=== PATIENT | female | born 1970 | race Caucasian/White ===

== ENCOUNTER 2023-04-25 20:44 | Emergency (ER) | payer MEDICARE, SELFPAY ==
[2023-04-25] VITALS (19 sets, daily range): BP systolic 142–165; BP diastolic 72–101; PULSE 64–73; RESP 18; TEMP 36.5; O2SAT 91–100; BMI 39.9
--- NOTE | 2023-04-25 21:26 | CRLHL7_ITS ---
For Patients: As a result of the Century Cures Act, medical imaging exams and procedure reports are released immediately into your electronic medical record. You may view this report before your referring provider. If you have questions, please contact your health care provider. INDICATION: Chest pain TECHNIQUE: Chest 2 views. COMPARISON: None FINDINGS: Cardiovascular and mediastinum: Heart size and vasculature are normal in caliber and appearance. Mediastinum is within normal limits. Lungs and pleural spaces: On the frontal projection there is ovoid density measuring 2.0 x 1.5 overlying posterior aspect left 8th rib. This is seen lateral view. No sign of infiltrate or mass. No sign of pleural effusion. No pneumothorax. Bones and soft tissues: No significant findings. IMPRESSION: Ovoid density overlying the left 8th rib, seen only on the frontal projection. This is of unknown etiology. Consider chest CT for further evaluation if clinically indicated. Dictated by Andria Laird MD @ 04/25/2023 10:56:44 PM (Electronically Signed)
[2023-04-25 21:44] LABS: Basophils Absolute Auto 0.04 K/uL (0.00-0.30); Basophils Percent Auto 0.5 % (0.0-3.0); Eosinophils Absolute Auto 0.17 K/uL (0.00-0.50); Eosinophils Percent Auto 2.1 % (0.0-7.0); Hematocrit 38.7 % (33.0-51.0); Hemoglobin* 12.1 gm/dL (12.0-16.0); Immature Granulocytes Abs Auto 0.01 K/uL (0.00-0.30); Immature Granulocytes Pct Auto 0.1 %; Lymphocytes Absolute Auto 2.86 K/uL (0.90-2.90); Lymphocytes Percent Auto 35.6 % (20-44); Mean Corpuscular HGB Conc 31 gm/dL (32-36); Mean Corpuscular Hemoglobin 28 pg (26-34); Mean Corpuscular Volume 90 fL (80-100); Monocytes Percent Auto 7.7 % (0.0-11.0); Neutrophils Absolute Auto 4.34 K/uL (1.7-7.0); Platelet Count* 286 K/uL (140-440); RDW Coefficient of Variation % 15.7 % (11.5-15.5); Red Blood Count 4.28 m/uL (4.00-5.20); White Blood Count* 8.04 K/uL (4.50-11.00)
[2023-04-25 21:45] LABS: Slide Review Reflex No
--- NOTE | 2023-04-25 21:48 | ED_ITS ---
HPI - General Adult General Date Seen: 04/25/23 Chief complaint: Chest Pain Stated complaint: Chest pain Time Seen by Provider: 04/25/23 20:59 Source: patient Mode of arrival: ambulatory Limitations: no limitations History of Present Illness HPI narrative: Patient is a 53-year-old female who comes in with left-sided chest pain that radiates into her left axilla. She describes this as a sharp pain but she also describes it as an internal pain that she can not put her finger on. She has history of anxiety and acid reflux and in the past when she has had chest pain she was told that it was one of those. She has never had a stress test. Her risk factors include family history, hyperlipidemia, type 2 diabetes. She was doing some heavy physical work on the roof two days ago and had no pain while doing these chores. Today the pain came on while she was just sitting. There is no diaphoresis, dyspnea, nausea. She does not have much of an appetite due to her Ozempic. Related Data Home Medications Medication Instructions Recorded Confirmed adalimumab 40 mg/0.8 mL 40 mg subcut Q2W 04/25/23 04/25/23 subcutaneous syringe kit (Humira) cholecalciferol (vitamin D3) 50 50 mcg PO DAILY 04/25/23 04/25/23 mcg (2,000 unit) capsule docusate sodium 100 mg capsule 100 mg PO DAILY 04/25/23 04/25/23 folic acid 1 mg tablet 1 mg PO DAILY 04/25/23 04/25/23 hydroxychloroquine 200 mg tablet 200 mg PO DAILY 04/25/23 04/25/23 (Plaquenil) insulin NPH-regular 70-30 U-100 See Rx Instructions subcut BID 04/25/23 04/25/23 insulin 100 unit/mL subcutaneous pen methotrexate (PF) 25 mg/0.5 mL 25 mg subcut QWEEK 04/25/23 04/25/23 subcutaneous auto-injector prednisone 2.5 mg tablet 2.5 mg PO DAILY 04/25/23 04/25/23 semaglutide 2 mg/dose (8 mg/3 mL) 0.5 mg subcut QWEEK 04/25/23 04/25/23 subcutaneous pen injector simvastatin 10 mg tablet 10 mg PO DAILY 04/25/23 04/25/23 venlafaxine 150 mg tablet,extended 150 mg PO DAILY 04/25/23 04/25/23 release 24 hr Allergies Allergy/AdvReac Type Severity Reaction Status Date / Time codeine Allergy Mild Nausea Verified 04/25/23 21:13 sulfasalazine Allergy Rash Verified 04/25/23 21:13 pineapple AdvReac Vomiting Verified 04/25/23 21:13 topiramate [From Topamax] AdvReac Verified 04/25/23 21:13 Review of Systems Narrative: She has chronic widespread pain and is treated for rheumatoid arthritis. She does not describe morning stiffness. She denies any medication side effects. Her PCP is Pelon. She has a hide buffer in [place]. Review of systems is otherwise unremarkable. [facility] Social History Smoking Status: Unknown if ever smoked Exam Narrative: Exam Narrative: Vitals noted. HEENT: Conjunctiva clear. Tympanic membranes are pearly white bilaterally. Po sterior pharynx is clear without erythema or exudate. She is missing most of her teeth. Neck is supple without adenopathy, thyromegaly, carotid bruit. Lungs: Clear to auscultation in all krishna. No wheezes, rales, rhonchi. Heart: Regular rate and rhythm without murmur. No significant chest wall tenderness. There may be some discomfort with deep palpation in the left axilla. No palpable mass. Abdomen: Obese, Soft and nontender. No guarding, rigidity, rebound. Bowel sounds are normal. No palpable masses. Extremities: No cyanosis or edema. Good distal pulses. Skin: No abnormalities noted of the exposed skin. Neurologic: Awake, alert, fully oriented. Neurologic exam is nonfocal. Const: Vital Signs, click to edit/add: Vital Signs - 24 hr 04/25/23 20:48 04/25/23 21:21 04/25/23 21:30 Temperature 97.7 F Pulse Rate 70 69 Pulse Rate [Pulse Oximeter] 70 Respiratory Rate 18 Blood Pressure Blood Pressure [Ri ght Upper Arm] 165/85 H Pulse Oximetry 100 100 99 Oxygen Delivery Me thod Room Air 04/25/23 21:33 04/25/23 21:34 04/25/23 21:35 Temperature Pulse Rate 73 Pulse Rate [Pulse Oximeter] Respiratory Rate Blood Pressure 142/101 H Blood Pressure [Ri ght Upper Arm] Pulse Oximetry 100 91 Oxygen Delivery Me thod 04/25/23 21:45 04/25/23 22:06 04/25/23 22:15 Temperature Pulse Rate 68 66 64 Pulse Rate [Pulse Oximeter] Respiratory Rate Blood Pressure Blood Pressure [Ri ght Upper Arm] Pulse Oximetry 100 97 99 Oxygen Delivery Me thod 04/25/23 22:30 04/25/23 22:33 04/25/23 22:48 Temperature Pulse Rate 65 66 70 Pulse Rate [Pulse Oximeter] Respiratory Rate Blood Pressure 149/84 H Blood Pressure [Ri ght Upper Arm] Pulse Oximetry 100 100 100 Oxygen Delivery Me thod 04/25/23 23:00 04/25/23 23:02 04/25/23 23:15 Temperature Pulse Rate 65 66 64 Pulse Rate [Pulse Oximeter] Respiratory Rate Blood Pressure 156/72 H Blood Pressure [Ri ght Upper Arm] Pulse Oximetry 100 100 100 Oxygen Delivery Me thod 04/25/23 23:30 04/25/23 23:33 04/25/23 23:34 Temperature Pulse Rate 66 66 66 Pulse Rate [Pulse Oximeter] Respiratory Rate Blood Pressure 155/73 H Blood Pressure [Ri ght Upper Arm] Pulse Oximetry 100 94 99 Oxygen Delivery Me thod 04/25/23 23:45 Temperature Pulse Rate 67 Pulse Rate [Pulse Oximeter] Respiratory Rate Blood Pressure Blood Pressure [Ri ght Upper Arm] Pulse Oximetry 100 Oxygen Delivery Me thod Course Course Hospital Course: Patient seen and examined. Chest x-ray, EKG and labs are ordered. Reevaluation(s) Reevaluation #1: CBC is normal. Basic metabolic panel is normal other than a potassium of 3.4. Troponin is negative. D-dimer is 0.71. EKG shows normal sinus rhythm with a rate of 68. No acute ST or T-wave changes. Chest x-ray is unremarkable other than a density noted over her left 8th rib. This does not show up on the lateral view. CT is suggested. Reevaluation #2: CT of her chest is unremarkable. Second troponin is negative. Vital Signs Vital signs: Initial Vital Signs Temperature 97.7 F 04/25/23 20:48 Temperature Source Temporal Artery Scan 04/25/23 20:48 Pulse Rate 70 04/25/23 20:48 Pulse Rhythm Regular 04/25/23 20:48 Pulse Strength 3+ Normal 04/25/23 20:48 Respiratory Rate 18 04/25/23 20:48 Respiratory Effort Normal, Spontaneous, Non-Labored 04/25/23 20:48 Respiratory Depth Normal 04/25/23 20:48 Respiratory Pattern Normal 04/25/23 20:48 Blood Pressure 165/85 H 04/25/23 20:48 Blood Pressure Mean 111 H 04/25/23 20:48 Blood Pressure Position Sitting 04/25/23 20:48 Pulse Oximetry 100 04/25/23 20:48 Oxygen Delivery Method Room Air 04/25/23 20:48 Vital Signs Temperature 97.7 F 04/25/23 20:48 Pulse Rate 70 04/25/23 20:48 Respiratory Rate 18 04/25/23 20:48 Blood Pressure 165/85 H 04/25/23 20:48 Pulse Oximetry 100 04/25/23 20:48 Oxygen Delivery Method Room Air 04/25/23 20:48 Temperature 97.7 F 04/25/23 20:48 Pulse Rate 67 04/25/23 23:45 Respiratory Rate 18 04/25/23 20:48 Blood Pressure 155/73 H 04/25/23 23:33 Pulse Oximetry 100 04/25/23 23:45 Oxygen Delivery Method Room Air 04/25/23 20:48 Medical Decision Making MDM Narrative Medical decision making narrative: We discussed the chest pain can be chest wall pain, anxiety, acid reflux, etc.. We have ruled out cardiac sources. We have ruled out pulmonary embolism. She is reassured. She tells me that she has had several stress tests in the past all of which were normal. Lab Data Labs: Lab Results 04/25/23 04/25/23 04/25/23 Range/Units 21:10 21:20 23:40 WBC 8.04 (4.50-11.00) K/uL RBC 4.28 (4.00-5.20) m/uL Hgb 12.1 (12.0-16.0) gm/dL Hct 38.7 (33.0-51.0) % MCV 90 (80-100) fL MCH 28 (26-34) pg MCHC 31 L (32-36) gm/dL RDW Coeff of [place] 15.7 H (11.5-15.5) % Plt Count 286 (140-440) K/uL Neut % (Auto) 54.0 (42.0-72.0) % Lymph % (Auto) 35.6 (20-44) % [place] % (Auto) 7.7 (0.0-11.0) % Eos % (Auto) 2.1 (0.0-7.0) % Baso % (Auto) 0.5 (0.0-3.0) % Neut # (Auto) 4.34 (1.7-7.0) K/uL Lymph # (Auto) 2.86 (0.90-2.90) K/uL [place] # (Auto) 0.60 (0.00-0.90) K/UL Eos # (Auto) 0.17 (0.00-0.50) K/uL Baso # (Auto) 0.04 (0.00-0.30) K/uL Abs Immat Gran (auto) 0.01 (0.00-0.30) K/uL Imm/Tot Granulo (auto) 0.1 % D-Dimer Quant (PE/DVT) 0.71 H (0.00-0.50) ug/ml Sodium 140 (135-149) mmol/L Potassium 3.4 L (3.6-5.1) mmol/L Chloride 103 (96-114) mmol/L Carbon Dioxide 32 (20-32) mmol/L BUN 9 (7-30) mg/dL Creatinine 0.7 (0.5-1.5) mg/dL Estimated Creat Clear 83.63 Estimated GFR 103 ml/min Glucose 86 (60-115) mg/dL Calcium 9.3 (8.4-10.6) mg/dL Troponin I < 0.01 L (0.01-0.04) ng/mL POC Troponin I 0.00 L 0.00 L (0.01-0.04) ng/ml Discharge Plan Discharge Clinical Impression: Atypical chest pain Patient Disposition: Home, Self-Care Condition: Stable Additional Instructions: Continue all of your current medications. Ibuprofen 600 mg 3 times daily as needed for pain. Tylenol 1000 mg 3 times daily as needed for pain. Follow-up w antolin Bird in 3-5 days for a recheck. Prescriptions: No Action Humira 40 mg/0.8 mL syringe kit 40 mg subcut Q2W cholecalciferol (vitamin D3) 50 mcg (2,000 unit) capsule 50 mcg PO DAILY docusate sodium 100 mg capsule 100 mg PO DAILY folic acid 1 mg tablet 1 mg PO DAILY hydroxychloroquine [Plaquenil] 200 mg tablet 200 mg PO DAILY methotrexate (PF) 25 mg/0.5 mL auto-injector 25 mg subcut QWEEK insulin NPH and regular human 100 unit/mL (70-30) insulin pen See Rx Instructions subcut BID Rx Instructions: subcutaneously twice a day; prednisone 2.5 mg tablet 2.5 mg PO DAILY semaglutide 2 mg/dose (8 mg/3 mL) pen injector 0.5 mg subcut QWEEK simvastatin 10 mg tablet 10 mg PO DAILY venlafaxine 150 mg tablet extended release 24hr 150 mg PO DAILY Follow Up/Referrals: Radha Bird DO [Primary Care Provider] - Stand Alone Forms: [facility] Info Instructions
[2023-04-25 21:50] LABS: Chloride* 103 mmol/L (96-114); Sodium* 140 mmol/L (135-149)
[2023-04-25 21:51] LABS: Potassium* 3.4 mmol/L (3.6-5.1)
[2023-04-25 21:53] LABS: Carbon Dioxide* 32 mmol/L (20-32); Creatinine* 0.7 mg/dL (0.5-1.5); Est. Creatinine Clearance* 83.63; Estimated Glomerular Filt Rate 103 ml/min
[2023-04-25 21:54] LABS: Blood Urea Nitrogen* 9 mg/dL (7-30); Calcium* 9.3 mg/dL (8.4-10.6); Glucose* 86 mg/dL (60-115)
[2023-04-25 21:56] LABS: D Dimer Quantitative* 0.71 ug/ml (0.00-0.50)
--- NOTE | 2023-04-25 22:02 | CRLHL7_ITS ---
For Patients: As a result of the Century Cures Act, medical imaging exams and procedure reports are released immediately into your electronic medical record. You may view this report before your referring provider. If you have questions, please contact your health care provider. INDICATION: .ELEVATED D- DIMER TECHNIQUE: CT chest PE was acquired with 95 cc Isovue 370 IV contrast. COMPARISON: None FINDINGS: Pulmonary Arteries: No CT evidence of pulmonary thromboembolic disease. No pulmonary hypertension or right ventricular strain. Heart and Mediastinum: Punctate calcified thyroid nodules. No axillary or supraclavicular lymphadenopathy. No mediastinal, hilar or retrocrural lymphadenopathy. Normal heart size. Normal caliber aorta. Lungs and Airways: Motion. No mass or consolidation. Calcified left lower lobe granuloma. No endoluminal lesion. Pleura: The pleural spaces are normal. Abdomen: The visualized upper abdominal organs are unremarkable. Bones and soft tissues: The skeletal structures and soft tissues of the chest wall are unremarkable. IMPRESSION: 1. No CT evidence of pulmonary thromboembolic disease. 2. No intrathoracic mass or consolidation. Please note that all CT scans at this facility use dose modulation, iterative reconstruction, and/or weight-based dosing when appropriate to reduce radiation dose to as low as reasonably achievable. Dictated by Byron Wisdom MD @ 04/25/2023 11:28:04 PM (Electronically Signed)
[2023-04-25 22:16] LABS: Troponin I* < 0.01 ng/mL (0.01-0.04)
== END 2023-04-25 23:59 | disposition home or self-care (01) ==
PROVIDERS: Emergency Provider Family Medicine; PCP Family Medicine
DX: R07.9 Chest pain, unspecified (principal)
CPT/HCPCS: 36415; 71046; 71260; 80048; 84484; 85025; 85379; 93005; 94761; 99283; 99284; 99285; Q9967

== ENCOUNTER 2024-08-26 08:03 | Outpatient (CLI) | payer MEDICARE, SELFPAY | END 2024-08-26 08:04 | disposition home or self-care (01) | LOC: WOUND 08:04 | PROVIDERS: PCP Family Medicine; Visit Provider Family Medicine | DX: E11.621 Type 2 diabetes mellitus with foot ulcer (principal); E11.42 Type 2 diabetes mellitus with diabetic polyneuropathy; L97.528 Non-pressure chronic ulcer of other part of left foot with other specified severity; M06.9 Rheumatoid arthritis, unspecified; Z79.4 Long term (current) use of insulin; Z79.899 Other long term (current) drug therapy | CPT/HCPCS: 11042; G0463 ==

== ENCOUNTER 2024-09-02 10:45 | Outpatient (CLI) | payer MEDICARE, SELFPAY | END 2024-09-02 10:46 | disposition home or self-care (01) | LOC: WOUND 10:45 | PROVIDERS: PCP Family Medicine; Visit Provider Nurse Practitioner Family | DX: E11.621 Type 2 diabetes mellitus with foot ulcer (principal); E11.42 Type 2 diabetes mellitus with diabetic polyneuropathy; L97.522 Non-pressure chronic ulcer of other part of left foot with fat layer exposed; Z79.4 Long term (current) use of insulin | CPT/HCPCS: 11042 ==

== ENCOUNTER 2024-09-09 11:17 | Outpatient (CLI) | payer MEDICARE, SELFPAY | END 2024-09-09 11:18 | disposition home or self-care (01) | LOC: WOUND 11:17 | PROVIDERS: PCP Family Medicine; Visit Provider Nurse Practitioner Family | DX: E11.621 Type 2 diabetes mellitus with foot ulcer (principal); E11.42 Type 2 diabetes mellitus with diabetic polyneuropathy; L97.522 Non-pressure chronic ulcer of other part of left foot with fat layer exposed; Z79.4 Long term (current) use of insulin | CPT/HCPCS: 97597 ==

== ENCOUNTER 2024-09-23 11:16 | Outpatient (CLI) | payer MEDICARE, SELFPAY | END 2024-09-23 11:17 | disposition home or self-care (01) | LOC: WOUND 11:16 | PROVIDERS: PCP Family Medicine; Visit Provider Nurse Practitioner Family | DX: E11.621 Type 2 diabetes mellitus with foot ulcer (principal); E11.42 Type 2 diabetes mellitus with diabetic polyneuropathy; L97.528 Non-pressure chronic ulcer of other part of left foot with other specified severity; Z79.4 Long term (current) use of insulin | CPT/HCPCS: 97602; G0463 ==

== ENCOUNTER 2024-10-07 11:08 | Outpatient (CLI) | payer MEDICARE, SELFPAY | END 2024-10-07 11:09 | disposition home or self-care (01) | LOC: WOUND 11:08 | PROVIDERS: PCP Family Medicine; Visit Provider Family Medicine | DX: E11.621 Type 2 diabetes mellitus with foot ulcer (principal); E11.42 Type 2 diabetes mellitus with diabetic polyneuropathy; L97.522 Non-pressure chronic ulcer of other part of left foot with fat layer exposed; Z79.4 Long term (current) use of insulin | CPT/HCPCS: 11042 ==

== ENCOUNTER 2024-10-20 14:02 | Outpatient (CLI) | payer MEDICARE, SELFPAY | END 2024-10-20 14:03 | disposition home or self-care (01) | LOC: AMB 10-31 03:36 | PROVIDERS: PCP Family Medicine; Visit Provider Emergency Medicine | DX: R11.2 Nausea with vomiting, unspecified (principal) | CPT/HCPCS: A0425; A0427 ==

== ENCOUNTER 2024-10-20 14:16 | Emergency (ER) | payer MEDICARE, SELFPAY ==
[2024-10-20 14:19] VITALS: BP 119/48; PULSE 109; RESP 18; TEMP 38.1; O2SAT 96; BMI 39.1
--- OUTSIDE RECORDS SUMMARY | 2024-10-20 14:19 | XMS_ITS | Clinical Summary ---
Author Organization [employer] Formerly [facility] Address [place], [place] [address] Care Team Providers Care Manager Ob Name Role Phone Gordon Aime Paez Unavailable Unavailab Chele Trevino MD Unavailable [phone] Celia Dos Santos PsyD, LP Unavailable Ivana Chowdhury MD Primary Care Prov ider Allergies Active Allergy Reactions Criticality Noted Date Comments Codeine Nausea And Vomiting,Nausea Only,Other - Describe In Comment Field Low 02/20/2007 Pineapple Vomiting 05/04/2007 all canned fruit and juice from concentrate Sulfa (Sulfonamide Antibiotics) Other - Describe In Comment Field 08/21/2024 Sulfasalazine Rash 09/02/2013 Topiramate Other - Describe In Comment Field 05/31/2017 brain foggy Medications cholecalciferol (VITAMIN D-3) 2,000 unit capsule Take 2 capsules by mouth once daily. 0 11/18/19 14 Active docusate (DOC-Q-LACE) 100 mg capsuleIndicatio ns:Chronic constipation Take 1 capsule by mouth 2 times daily. 180 capsule 3 03/06/20 17 Active adalimumab (HUMIRA PEN) 40 mg/0.4 mL pnkt Inject subcutaneous. 0 11/07/19 19 Active predniSONE (DELTASONE) 2.5 mg tablet 2.5 tid, half the other 4 days 3 01/29/20 19 Active Insulin [place], Disposable, (Novofine 32) 32 gauge x 1/4Indications: Diabetes mellitus without complication (HC) For administering insulin at home. 300 Each 3 03/07/20 22 Active semaglutide (OZEMPIC) 2 mg/dose (8 mg/3 mL) penIndications:D iabetes mellitus without complication (HC) Inject 0.75 mL (2 mg) subcutaneous once weekly. 3 mL 4 03/10/20 23 Active insulin NPH-regular (NovoLIN 70-30 FlexPen U-100) 100 unit/mL (70-30) penIndications:D iabetes mellitus without complication (HC) 20-25 units before the evening meal. and 30-35 units before the am meal. 30 mL 3 09/11/20 23 Active FreeStyle Bambi [address] for continuous blood glucose monitor (CGM)Indications :Insulin dependent type 2 diabetes mellitus, controlled (HC) To be used to read blood sugars follow senior procurement manager directions. 1 Each 03/18/20 24 Active environmental technical officer (FreeStyle Bambi [address]) for continuous blood glucose monitor (CGM)Indications :Insulin dependent type 2 diabetes mellitus, controlled (HC) To be used to read blood sugars follow senior procurement manager directions. 1 Each 03/18/20 24 Active iron,carb/vit C/vit B12/folic (IRON 100 PLUS ORAL) Take by mouth. Activ e Contour Next Test Strips stripIndications :Diabetes mellitus without complication (HC) USE TO TEST THREE TIMES A DAY 07/01/20 24 Active sensor (FreeStyle Bambi 3 Sensor) for continuous blood glucose monitor (CGM)Indications :Diabetes mellitus without complication (HC),Insulin dependent type 2 diabetes mellitus, controlled (HC) To be used to read blood sugars, follow senior procurement manager directions. 7 Each 3 07/01/20 24 Active venlafaxine (EFFEXOR XR) 150 mg Extended-Release capsuleIndicatio ns:Generalized anxiety disorder,Major depressive disorder, recurrent episode, moderate (HC) TAKE 2 CAPSULES BY MOUTH ONCE DAILY WITH EVENING MEAL 180 Capsule 3 07/10/20 24 Active simvastatin (ZOCOR) 10 mg tabletIndication s:Diabetes mellitus without complication (HC),Hyperlipide leena with target LDL less than 100 TAKE 1 TABLET BY MOUTH ONCE DAILY WITH EVENING MEAL 100 Tablet 2 08/16/20 24 Active cloNIDine HCL (CATAPRES) 0.1 mg tabletIndication s:JACINTO (generalized anxiety disorder),Bruxis m (teeth grinding) Take 1 Tablet (0.1 mg) by mouth two times daily. twice a day 180 Tablet 1 09/25/20 24 Active methotrexate 25 mg/mL injectionIndicat ions:Rheumatoid arthritis, seronegative, multiple sites (HC) Inject 0.9 mL (22.5 mg) subcutaneous once weekly. 16 mL 09/26/20 24 Active folic acid 1 mg tabletIndication s:Rheumatoid arthritis, seronegative, multiple sites (HC) Take 3 Tablets (3 mg) by mouth once daily. 60 Tablet 11 09/26/20 24 Active hydroxychloroqui ne (PLAQUENIL) 200 mg tabletIndication s:Rheumatoid arthritis, seronegative, multiple sites (HC) Take 1 Tablet (200 mg) by mouth two times daily. 180 Tablet 1 09/26/20 24 Active B-D TB Syringe 1cc/27Gx1/2 1 mL 27 x 1/2 syrgIndications: Rheumatoid arthritis, seronegative, multiple sites (HC) Inject subcutaneous. To be used for Methotrexate weekly injections 200 Each 1 09/26/20 24 Active hydroxychloroqui ne (PLAQUENIL) 200 mg tablet Take 200 mg by mouth 2 times daily. 06/17/20 14 024 Discontin ued(Reord er (E-cancel not sent)) methotrexate 25 mg/mL injection inject 0.9 mL by Subcutaneous route every week 0 06/28/20 19 024 Discontin ued(Reord er (E-cancel not sent)) folic acid 1 mg tabletIndication s:Depression with anxiety Take 3 tablets by mouth once daily. 60 tablet 11 05/11/20 20 024 Discontin ued(Reord er (E-cancel not sent)) B-D TB SYRINGE 1CC/27GX1/2 1 mL 27 x 1/2 syrg To be used with injectable methotrexate 11/15/19 21 024 Discontin ued(Reord er (E-cancel not sent)) cloNIDine HCL (CATAPRES) 0.1 mg tabletIndication s:JACINTO (generalized anxiety disorder),Bruxis m (teeth grinding) Take 1 Tablet (0.1 mg) by mouth three times daily. 90 Tablet 08/21/20 24 024 Discontin ued(*Medi cation adjustmen t) Active Problems Problem Noted Date Diagnosed Date Rheumatoid arthritis, seronegative, multiple sit es 09/26/2024 Primary osteoarthritis of both knees 09/26/2024 Diabetic ulcer of toe of lef t foot associated with type 2 diabetes mellitus, limited to breakdown of skin 03/18/2024 Vaginal inclusion cyst 03/10/2023 Trigger ring finger of right hand 03/28/2022 De Quervain's tenosynovitis, left 12/27/2021 Severe episode of recurrent major depressive disorder, without psychotic features 11/01/2021 Type 2 diabetes mellitus wit h hypoglycemia without coma, with long-term current use of insulin 11/01/2021 Assessment & Plan (12/13/2022 9:47 AM 3D DESIGNER): chart update only Trigger thumb, acquired 05/18/2021 Trigger index finger of right hand 05/18/2021 Pelvic mass 05/21/2020 Tardive dyskinesia 03/18/2020 Psychophysiological insomnia 08/06/2019 Generalized anxiety disorder 03/20/2018 Controlled substance agreement signed 10/20/2016 Overview (10/20/2016): Controlled substance agreement for Lorazepam on file and signed 10/20/2016. Designated pharmacy: [facility] [phone] Prescribing physician:Dr. Kylee Stacy MD. Diagnosis: Depression with anxiety. Whitley Davis .................... 10/20/2016 4:21 PM Encounter for long-term (cur rent) use of high-risk medication 01/22/2016 Overview (01/22/2016): Controlled substance agreement for Ritalin on file and signed 01/22/16. Prescribing physician:Kylee Stacy MD. Jesica Christian .................... 01/22/2016 11:38 AM Encounter for long-term (current) use of other m edications 07/01/2015 Overview (07/01/2015): Controlled substance agreement for Shraddha on file and signed 07/01/2015. Designated pharmacy: [facility] [phone] Prescribing physician: Dr. Kylee Stacy MD . Diagnosis: Major Depressive Disorder. Whitley Davis .................... 07/01/2015 2:05 PM Hyperlipidemia LDL goal < 100 06/05/2015 Dysthymic disorder 03/28/2014 Unspecified personality disorder 02/28/2014 Rheumatoid arthritis, adult 02/28/2014 Assessment & Plan (12/13/2022 9:47 AM 3D DESIGNER): chart update only. 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 Del Toro Encounters Date Type Department Care Team Description 10/03/2024 Telephone [facility] [address] [place] [address] Ivana Chowdhury MD Screening (Spine Center) 10/01/2024 Orders Only [facility] [id number] [place] [address] Peace Ruth MD <No scans attached> 09/30/2024 Telephone [facility] [address] [place] [address] Ivana Chowdhury MD Form 09/26/2024 11:55 AM 3D DESIGNER Ancillary Procedure [facility] [address] [address] 09/26/2024 11:00 AM 3D DESIGNER Office Visit [facility] [address] [place] [address] Peace Ruth MD Follow Up 09/25/2024 9:45 AM 3D DESIGNER Office Visit [facility] [address] [place] [address] Consuelo Quevedo MD Medication Management 09/25/2024 Travel 09/19/2024 10:30 AM 3D DESIGNER Telemedicine [facility] [place] [place] [address] [place] [address] Celia Dos Santos PsyD, TAMMIE Individual Therapy; Telehealth 09/05/2024 9:30 AM 3D DESIGNER Telemedicine [facility] [place] [place] [address] [place] [address] Celia Dos Santos PsyD, LP Individual Therapy; Telehealth 08/29/2024 10:30 AM 3D DESIGNER Telemedicine [facility] [place] [place] [address] [place] [address] Celia Dos Santos PsyD, LP Individual Therapy; Telehealth 08/23/2024 10:30 AM 3D DESIGNER Ancillary Procedure [facility] [address] [place] [address] 08/23/2024 Travel 08/21/2024 11:15 AM 3D DESIGNER Office Visit [facility] [address] [place] [address] Consuelo Quevedo MD Mental Health Intake (Establish care, medication consult) 08/21/2024 9:50 AM 3D DESIGNER Office Visit [facility] [address] [place] [address] Ivana Chowdhury MD Wound Check (Diabetic wound check on toe) 08/20/2024 Travel 08/13/2024 2:45 PM CDT Ancillary Procedure [facility] [address] [place] [address] 08/13/2024 2:15 PM CDT Office Visit [facility] [address] [place] [address] Ivana Chowdhury MD Toe Pain/problem (Possible infection in toe. Pulled a callus off her left toe a few days ago. 1 day for foot and calve pain); Immunization/Injec tion 08/13/2024 9:30 AM CDT Telemedicine [facility] [place] [place] [address] [place] [address] [address] Celia Dos Santos PsyD, TAMMIE Individual Therapy; Telehealth 08/13/2024 Refill [facility] [address] [place] [address] Radha Bird DO Refill Request (Simvastatin) 08/13/2024 Travel 07/31/2024 9:30 AM CDT Telemedicine [facility] [place] [place] [address] [place], [place] [address] [address] Celia Dos Santos PsyD, TAMMIE Individual Therapy; Telehealth 07/25/[address] [address] Consuelo Quevedo MD Questions (requesting approval to follow up ) 07/23/2024 3:00 PM CDT Office Visit [facility] [address] [place] [address] Katherin Stallworth MD Consult (gallstones) 07/23/2024 Travel 07/23/2024 Telephone [facility] [place] [place] [address] [place] [address] Celia Dos Santos PsyD, TAMMIE Follow Up (Needs referral ) from Last 3 Months Immunizations Name Administration Dates Next Due COVID-19 VACCINE SPIKEVAX (M ODERNA 50MCG/0.5ML) 12YO+ PFS 08/13/2024,09/11/2023 COVID-19 vaccine (Moderna 100mcg/0.5mL) PF, MDV 08/31/2021,02/11/2021,01/14/2021 COVID-19 vaccine (Pfizer-Bio NTech 30mcg/0.3mL) 12YO+ BIVALENT PF, MDV 07/11/2022 Hepatitis B (Adult) 01/07/2022,11/01/2021 INFLUENZA, IIV3 PF (AGE >= 6 MO) 08/13/2024 Influenza, IIV4 09/11/2023,,11/01/2021,2019,08/09/2019,11/07/2018,08/30/2017 Pneumococcal Conj 20-valent (Prevnar 20) 03/10/2023 Pneumococcal Poly,23-Valent (Pneumovax) 08/30/2017 Td (Age >=7 Years) 04/07/2004 Tdap 03/06/2015 Zoster (Shingrix-RZV, recombinant) 06/25/2023, Family History Medical History Relation Name Comments Diabetes Brother Diabetes Daughter Alcoholism Father Heart Disease Father [place] 60's Hypertension Father Diabetes Maternal Aunt 1 Diabetes Maternal Aunt 2 Diabetes Maternal Grandfather Cancer Maternal Grandmother Diabetes Maternal Uncle 1 Cancer Maternal Uncle 2 Heart Disease Maternal Uncle 2 Cancer Maternal Uncle 3 Cancer Mother cvx Cancer Paternal Aunt breast Cancer-breast Paternal Aunt Cancer Paternal Grandfather Diabetes Paternal Grandmother Alcoholism Sister Drug Abuse Sister Other Sister ?? fallopian tu be cysts as teenager Unknown Sister Psychiatric illness Son mental issues Cancer-ovarian No Family History Relation Name Status Comments Brother Alive Daughter Alive Father Maternal Aunt 1 Alive Maternal Aunt 2 Maternal Grandfather Maternal Grandmother Maternal Uncle 1 Alive Maternal Uncle 2 Maternal Uncle 3 Mother Alive Paternal Aunt Paternal Grandfather Paternal Grandmother Sister Alive Son Alive Social History Tobacco Use Types Packs/Day Years Used Date Smoking Tobacco: Never Smokeless Tobacco: Never Tobacco Cessation:Counseling Given: Yes Alcohol Use Standard Drinks/Week Comments No 0 (1 standard drink = 0.6 oz pur e alcohol) [facility] Utilities Answer Date Recorded Do you have trouble paying f or utilities (for example, heat, electricity, water, phone)? Yes 03/18/2024 PHQ-2 Answer Date Recorded PHQ-2 TOTAL SCORE 4 09/25/2024 Social Connections Answer Date Recorded Do you often feel lonely or isolated from those around you? 0 03/18/2024 Financial Resource Strain Answer Date R ecorded Difficulty of Paying Living Expenses 3 03/18/2024 Difficulty of Paying Living Expenses Not on file 03/18/2024 Food Insecurity Answer Date Recorded Do you worry your food will run out before you are able to buy more? 1 03/18/2024 Transportation Needs Answer Date Record ed Does lack of transportation keep you from medica l appointments? 1 03/18/2024 Does lack of transportation keep you from work, meetings or getting things that you need? 1 03/18/2024 Housing Stability Answer Date Recorded What is your housing situation today? 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[employer] Not on file Not on file Not on file Obstetrics History Para Term AB IAB SAB Ectopic Multiple Livin g Live Births 2 2 Date Outcome GA Total Labor Labor/2nd/3rd Weight Sex Type Anes PTL Em A1 A5 Name Clin Last Filed Vital Signs Vital Sign Reading Time Taken Comments Blood Pressure 112/70 09/26/2024 11:02 AM 3D DESIGNER Pulse 76 09/26/2024 11:02 AM 3D DESIGNER Temperature 36.5 C (97.7 F) 10/04/2023 7:46 AM 3D DESIGNER Respiratory Rate 18 10/04/2023 9:00 AM 3D DESIGNER Oxygen Saturation 100% 09/26/2024 11:02 AM 3D DESIGNER Inhaled Oxygen Concentration - - Weight 105.7 kg (233 lb) 09/26/2024 11:02 AM 3D DESIGNER Height 165.1 cm (5' 5) 09/26/2024 11:02 AM 3D DESIGNER Body Mass Index 38.77 09/26/2024 11:02 AM 3D DESIGNER Plan of Treatment Upcoming Encounters Date Type Department Care Team (Late st Contact Info) Description 10/28/2024 1:45 PM 3D DESIGNER Office Visit [facility] [place] [address] [address] [place] [address] Eunice, Mendoza, DO [address] [address] [place] [address] 10/31/2024 10:30 AM 3D DESIGNER Telemedicine [facility] [place] [place] [address] [place] [address] [place] [address] [place] [address] 11/14/2024 10:30 AM 3D DESIGNER Telemedicine [facility] [place] [place] [address] [place] [address] [place] [address] [place] [address] 11/28/2024 10:30 AM 3D DESIGNER Telemedicine [facility] [place] [place] [address] [place] [address] [place] [address] [place] [address] 12/25/2024 10:45 AM CDT Office Visit [facility] [address] [place] [address] Consuelo Quevedo MD [address] [place] [address] 01/21/2025 10:15 AM CDT Orders Only [facility] [address] [place] [address] Lab, [place] 01/28/2025 11:00 AM CDT Office Visit [facility] [id number] [place] [address] [place] [address] [place] [address] [place] [address] Health Maintenance Due Date Last Done Comments Hepatitis B series for Diabe ac (3 of 3 - 19+ 3-dose series) 05/01/2022 01/07/2022, 11/01/2021 COVID-19 vaccine series ( season) 2024 08/13/2024, 09/11/2023, 07/11/2022, Additional history exists Tetanus booster 03/06/2025 03/06/2015, 10/2008 (Completed outside of [facility]), 04/07/2004 Mammogram for age 45-75 03/18/2025 03/18/20, 09/02/2020, 08/14/2019, Additional history exists BMI (ht and wt on same day) for age 18+ 09/26/2025 09/26/2024, 06/27/2024, 06/03/2024, Additional history exists Depression screening for age 12+ 09/26/2025 09/26/2024, 09/25/2024, 08/21/2024, Additional history exists Colonoscopy through age 75 07/09/2027 07/09/2024 Lipids for age 45-75 09/23/2027 09/23/2022, 05/11/2020, 05/08/2019, Additional history exists Tdap Completed 03/06/2015 HIV for age 15-65 Completed 03/10/2023 Hepatitis C screening for ag e 18-79 Completed 03/10/2023 Pneumococcal series for age 50+ Completed 3, 08/30/2017 Zoster (shingles) series for age 50+ Completed 06/25/2023, 03/28/2023 Influenza for age 50-64 Completed 08/13/20 24, 09/11/2023, 07/11/2022, Additional history exists Procedures Procedure Name Priority Date/Time Associated Diagnosis Comments COMP METABOLIC PANEL Routine 09/26/2024 11:59 AM 3D DESIGNER Rheumatoid arthritis, seronegative, multiple sites (HC) XR SPINE LUMBAR 2 VIEWS Routine 09/26/2024 11:57 AM 3D DESIGNER Chronic midline low back pain without sciatica SCAN-OPERATIVE/PROCE DURE REPORT 09/03/2024 11:00 AM 3D DESIGNER US VENOUS LOWER EXTREMITY LEFT Routine 08/23/2024 11:01 AM 3D DESIGNER Localized swelling of left lower extremity PERIPHERAL BLD MORPHOLOGY Routine 08/21/2024 12:22 PM 3D DESIGNER Thrombocytopenia (HC) CBC WITH AUTO DIFFERENTIAL STAT 08/21/2024 12:22 PM 3D DESIGNER Thrombocytopenia (HC) RETICULOCYTES STAT 08/21/2024 12:22 PM 3D DESIGNER Thrombocytopenia (HC) CBC WITH AUTO DIFFERENTIAL STAT 08/21/2024 12:22 PM 3D DESIGNER Thrombocytopenia (HC) XR TOES 3 VIEWS LEFT Routine 08/13/2024 2:51 PM CDT Type 2 diabetes mellitus with diabetic foot infection (HC) HEMOGLOBIN A1C MONITORING (POCT) Routine 08/13/2024 2:41 PM CDT Type 2 diabetes mellitus with diabetic foot infection (HC) CBC WITH AUTO DIFFERENTIAL Routine 08/13/2024 2:40 PM CDT Type 2 diabetes mellitus with diabetic foot infection (HC) HEPATIC FUNCTION PANEL Add On 07/23/2024 3:40 PM CDT Calculus of gallbladder without cholecystitis without obstruction Elevated alkaline phosphatase level GAMMA GT Routine 07/23/2024 3:40 PM CDT Elevated alkaline phosphatase level ANTI-MITOCHONDRIAL ZAKI Routine 07/23/2024 3:40 PM CDT Elevated alkaline phosphatase level SCAN-COLONOSCOPY 07/09/2024 11:0 0 AM CDT XR MAMMO CARI BILAT SCREEN Routine 03/18/2024 10:42 AM CDT Encounter for screening mammogram for malignant neoplasm of breast LC HIV-1/O/2, 4TH GENERATION Routine 03/10/2023 11:01 AM CDT Screening for HIV (human immunodeficiency virus) LC HCV ANTIBODY RFX TO QUANT PCR Routine 03/10/2023 11:01 AM CDT Need for hepatitis C screening test LIPID PANEL W REFLEX MEASURED LDL Routine 09/23/2022 9:32 AM 3D DESIGNER Diabetes mellitus without complication (HC) from Last 3 Months or Most Recently Relevant to Health Maintenance Results * (ABNORMAL) COMP METABOLIC PANEL (09/26/2024 11:59 AM 3D DESIGNER) GLUCOSE 109(H) 65 - 99 mg/dL [facility] Comment: Fasting reference interval For someone without known diabetes, a glucose value between 100 and 125 mg/dL is consistent with prediabetes and should be confirmed with a follow-up test. UREA NITROGEN (BUN) 18 7 - 25 mg/dL [facility] CREATININE 0.88 0.50 - 1.03 mg/dL [facility] EGFR 78 > OR = 60 mL/min/1. 73m2 [facility] BUN/CREATININE RATIO SEE NOTE: 6 - 22 (calc) [facility] Comment: Not Reported: BUN and Creatinine are within reference range. SODIUM 141 135 - 146 mmol/L [facility] POTASSIUM 4.9 3.5 - 5.3 mmol/L [facility] CHLORIDE 104 98 - 110 mmol/L [facility] CARBON DIOXIDE 32 20 - 32 mmol/L [facility] CALCIUM 9.0 8.6 - 10.4 mg/dL [facility] PROTEIN, TOTAL 6.5 6.1 - 8.1 g/dL [facility] ALBUMIN 3.6 3.6 - 5.1 g/dL [facility] GLOBULIN 2.9 1.9 - 3.7 g/dL (calc) [facility] ALBUMIN/GLOBULIN RATIO 1.2 1.0 - 2.5 (calc) [facility] BILIRUBIN, TOTAL 0.3 0.2 - 1.2 mg/dL [facility] ALKALINE PHOSPHATASE 133 37 - 153 U/L [facility] AST 16 10 - 35 U/L [facility] ALT 16 6 - 29 U/L [facility] Blood BLOOD SPECIMEN / Unknown 09/26/2024 11:59 AM 3D DESIGNER 09/26/2024 11:59 AM 3D DESIGNER Peace Ruth MD CHEMISTRY Fin al Result Performing Organization Address City/State/[facility] Co de Phone Number [facility] [address] [place] [address], [facility] [address] [place] [address] * XR SPINE LUMBAR 2 VIEWS (09/26/2024 11:57 AM 3D DESIGNER) Anatomical Region Laterality Modality LUMBAR SPINE Digital Radiogra phy 09/27/2024 9:38 AM 3D DESIGNER Impressions 09/27/2024 9:38 AM 3D DESIGNER 1. Normal variant lumbosacral segmentation can be a pain generator. 2. Mild lower lumbar disc and facet degeneration. Dictated by Nidia Leary MD @ 09/27/2024 9:38:50 AM (Electronically Signed) Narrative 09/27/2024 9:38 AM 3D DESIGNER For Patients: As a result of the Century Cures Act, medical imaging exams and procedure reports are released immediately into your electronic medical record. You may view this report before your referring provider. If you have questions, please contact your health care provider. INDICATION: Chronic midline low back pain without sciatica COMPARISON: 09/18/2014 MRI TECHNIQUE: Two view lumbar spine radiographs including weightbearing AP and lateral. FINDINGS: There are 4 [id number] lumbar type vertebral bodies with sacralization of the L5 segment with a rudimentary L5-S1 disc space. No fracture. Normal alignment. Mild L3-4 and L4-5 disc space narrowing. Moderate bilateral lower lumbar facet arthritis. Normal bone mineralization. No focal bone lesions. Procedure Note Nidia Leary MD - 09/27/2024 For Patients: As a result of the Cures Act, medical imagingexams and procedure reports are released immediately into your electronicmedical record. You may view this report before your referring provider.If you have questions, please contact your health care provider. INDICATION: Chronic midline low back pain without sciatica COMPARISON: 09/18/2014 MRI TECHNIQUE: Two view lumbar spine radiographs including weightbearing AP and lateral. FINDINGS: There are 4 [id number] lumbar type vertebral bodies withsacralization of the L5 segment with a rudimentary L5-S1 disc space. No fracture. Normal alignment. Mild L3-4 and L4-5 disc space narrowing. Moderate bilateral lower lumbarfacet arthritis. Normal bone mineralization. No focal bone lesions. IMPRESSION: 1. Normal variant lumbosacral segmentation can be a pain generator. 2. Mild lower lumbar disc and facet degeneration. Dictated by Nidia Leary MD @ 09/27/2024 9:38:50 AM (Electronically Signed) Peace Ruth MD GENERAL IMAGING [facility] al Result * SCAN-OPERATIVE/PROCEDURE REPORT (09/03/2024 11:00 AM 3D DESIGNER) Narrative Procedure Note Jefferson Sánchez MD - 09/03/2024 9:47 AM CST [facility] [address], [address], [place] [address] Patient Name: Pia Stevens Gender: Female Exam Date: 09/03/2024 Visit Number: [id number] Age: 54 Years Date of : 1970 Attending MD: Jefferson Sánchez MD Medical Record#: [id number] ----- Procedure: Upper GI Endoscopy Indications: Iron Deficiency Anemia Provider: Jefferson Sánchez MD Referring MD: Referral Self Primary MD: Ivana Chowdhury MD Medications: Intra Procedure Medications: Patient received monitored anesthesia care. Complications: No immediate complications Procedure: An examination of the heart and lungs was performed within acceptablelimits. . The patient was therefore deemed a reasonable candidate forsedation. The risks and benefits were explained to the patient, who appeared tounderstand. After obtaining informed consent, the scope was passed underdirect vision. Throughout the procedure the patient's blood pressure,pulse and oxygen saturations were monitored. The scope was introducedthrough the mouth and advanced to the third portion of duodenum. Findings: Esophagus: Normal esophagus. The z-line is 37 centimeters from the incisors. Top of the gastric foldsis 37 centimeters from the incisors. Stomach: Normal stomach. H. Pylori biopsies taken. The diaphragm hiatus is at 37 centimeters from the incisors. Duodenum: Celiac Sprue biopsies taken. *Duodenum Comment: Nodularity noted in the bulb. Celiac Sprue biopsies taken. 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 Preliminary Plan: Recommendation Comments: Follow-up biopsies results. If no findings to explain iron deficiency anemia, we will request thePillCam. Pathology Results: A: STOMACH, BIOPSY: 1. Gastric antral and body mucosae without diagnostic abnormality 2. Negative for Helicobacter (Helicobacter immunostain is negative) B: DUODENUM, BIOPSY: 1. 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 Background non-heterotopic duodenal mucosa is normal, negativefor celiac disease 3. Negative for dysplasia and malignancy COMMENTS A,B. Mild chronic inflammation in the gastric component of each sampleprompted Helicobacter immunostains. MICROSCOPIC A: Performed B: Performed SPECIAL STAINING/DEEPER A: IHC Stains: Helicobacter B: IHC Stains: Helicobacter Electronically signed by: Christopher Marion MD Interpreted at [facility], [address],[place] [address] Orders Office Procedures: Service Comments Timeframe Assessment Small Bowel PillCam First Available D50.9 Additional Comments: No findings to explain iron deficiency anemia. As we discussed, we willrequest a pillcam to evaluate for any bleeding source in the smallintestine. If this comes back normal, evaluation by hematology will be reasonable. _Electronically signed by: eJfferson Sánchez MD 09/03/2024 cc: Ivana Chowdhury MD us Jefferson Sánchez MD OTHER Final Resul t * US VENOUS LOWER EXTREMITY LEFT (08/23/2024 11:01 AM 3D DESIGNER) Anatomical Region Laterality Modality LEGS, LEG L, Abdomen Ultrasound 08/23/2024 8:48 PM 3D DESIGNER Impressions 08/23/2024 8:48 PM 3D DESIGNER No convincing radiographic evidence of deep vein thrombosis within the visualized left lower extremity. Dictated by Jose Vásquez MD @ 08/23/2024 8:48:50 PM (Electronically Signed) Narrative 08/23/2024 8:48 PM 3D DESIGNER For Patients: As a result of the Century Cures Act, medical imaging exams and procedure reports are released immediately into your electronic medical record. You may view this report before your referring provider. If you have questions, please contact your health care provider. INDICATION: Pain and swelling TECHNIQUE: Ultrasound venous duplex lower left extremity. Compression venous exam was performed using zhou-scale, color Doppler, and spectral Doppler analysis. COMPARISON: None FINDINGS: Sonographic imaging demonstrates the left common femoral, deep femoral, superficial femoral, popliteal, posterior tibial and greater saphenous and the contralateral right common femoral veins to be fully compressible with normal color Doppler blood flow. Procedure Note Ayaan Vásquez, DO - 08/23/2024 For Patients: As a result of the 21st Century Cures Act, medical imagingexams and procedure reports are released immediately into your electronicmedical record. You may view this report before your referring provider.If you have questions, please contact your health care provider. INDICATION: Pain and swelling TECHNIQUE: Ultrasound venous duplex lower left extremity. Compression venous examwas performed using zhou-scale, color Doppler, and spectral Doppleranalysis. COMPARISON: None FINDINGS: Sonographic imaging demonstrates the left common femoral, deep femoral,superficial femoral, popliteal, posterior tibial and greater saphenous andthe contralateral right common femoral veins to be fully compressible withnormal color Doppler blood flow. IMPRESSION: No convincing radiographic evidence of deep vein thrombosis within thevisualized left lower extremity. Dictated by Jose Vásquez MD @ 08/23/2024 8:48:50 PM (Electronically Signed) Ivana Chowdhury MD [facility] nal Result * (ABNORMAL) CBC WITH AUTO DIFFERENTIAL (08/21/2024 12:22 PM 3D DESIGNER) Pathologist [facility] WHITE BLOOD COUNT 7.6 4.5 - 11.0 thou/cu mm 08/21/2024 3:33 PM 3D DESIGNER [facility] RED BLOOD COUNT 4.49 4.00 - 5.20 mil/cu mm 08/21/2024 3:33 PM 3D DESIGNER [facility] HEMOGLOBIN 11.7(L) 12.0 - 16.0 g/dL 08/21/2024 3:33 PM [facility] HEMATOCRIT 38.1 33.0 - 51.0 % 08/21/2024 3:33 PM 3D DESIGNER [facility] MCV 85 80 - 100 fL 08/21/2024 3:33 PM [facility] MCH 26.1 26.0 - 34.0 pg 08/21/2024 3:33 PM [facility] MCHC 30.7(L) 32.0 - 36.0 g/dL 08/21/2024 3:33 PM [facility] RDW 19.7(H) 11.5 - 15.5 % 08/21/2024 3:33 PM [facility] PLATELET COUNT 211 140 - 440 thou/cu mm 08/21/2024 3:33 PM [facility] MPV 10.4 6.5 - 11.0 fL 08/21/2024 3:33 PM [facility] NRBC 0.0 % 08/21/2024 3:33 PM [facility] ABS NRBC 0.0 thou /cu mm 08/21/2024 3:33 PM [facility] % NEUT 66.7 % 08/21/2024 3:33 PM [facility] % LYMPH 22.6 % 08/21/2024 3:33 PM [facility] % MONO 7.3 % 08/21/2024 3:33 PM [facility] % EOS 2.2 % 08/21/2024 3:33 PM [facility] % BASO 0.8 % 08/21/2024 3:33 PM [facility] % IMMATURE GRAN (METAS,MYELOS,OH OS) 0.4 % 08/21/2024 3:33 PM [facility] ABSOLUTE NEUTROPHILS 5.0 1.7 - 7.0 thou/cu mm 08/21/2024 3:33 PM [facility] ABSOLUTE LYMPHOCYTES 1.7 0.9 - 2.9 thou/cu mm 08/21/2024 3:33 PM [facility] ABSOLUTE MONOCYTES 0.6 <0.9 thou/cu mm 08/21/2024 3:33 PM [facility] ABSOLUTE EOSINOPHILS 0.2 <0.5 thou/cu mm 08/21/2024 3:33 PM [facility] ABSOLUTE BASOPHILS 0.1 <0.3 thou/cu mm 08/21/2024 3:33 PM [facility] ABSOLUTE IMMATURE GRANULOCYTES(MET ,MYELOS,PROS) 0.0 <0.3 thou/cu mm 08/21/2024 3:33 PM 3D DESIGNER [facility] Blood BLOOD SPECIMEN / Unknown [facility] / Unknown 08/21/2024 12:22 PM 3D DESIGNER 08/21/2024 12:22 PM 3D DESIGNER Ivana Chowdhury MD HEMATOLOGY Fi nal Result [facility] [address] [place] [address], * PERIPHERAL BLD MORPHOLOGY (08/21/2024 12:22 PM 3D DESIGNER) Case Report Special Hematology Report Case: [id number] Authorizing Provider: Ivana Chowdhury Collected: 08/21/2024 [employer] MD Marianne Ordering Location: [facility] Received: 08/21/[address] [place] [address] Pathologist: Heath Horton MD Specimen: Blood 08/25/2024 11:06 AM 3D DESIGNER [facility] ENTRAL [facility] Final Diagnosis PERIPHERAL BLOOD: 1. Mild normocytic anemia 2. See comment 08/25/2024 11:06 AM 3D DESIGNER [facility] Comment At the time of this evaluation, the platelet count is normal. The features of the anemia are nonspecific. The differential includes iron deficiency, anemia of chronic disease, anemia of chronic renal insufficiency, anatomic blood loss and medication effect. There is no morphologic evidence of hemolysis. Clinical correlation is recommended. This case was also reviewed by Sanjuana [place], MS (ASCP). 08/25/2024 11:06 AM 3D DESIGNER [facility] Clinical Information The patient is a 54-year-old female. 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 She is currently receiving prednisone. 08/25/2024 11:06 AM [facility] CBC and Differential HEMATOLOGY PARAMETERS Tested at: [facility] RESULTS EXPECTED VALUES WBC: 7.6 4.5-57n8824/cumm RBC: 4.49 4.00-5.20 mil/cumm HGB: 11.7 12-16 gm/dl DECREASED HCT: 38.1 33-51% MCV: 85.0 80-100 fl NORMOCYTIC MCH: 26.1 26-34 pg MCHC: 30.7 32-36 gm/dl HYPOCHROMIC RDW: 19.7 11.5-15.5% ELEVATED PLT: 211 140-877h7022/uL MPV: 10.4 6.5-11 fl Retic: 0.9 0.5-1.5% Differential Tested at: [facility] Absolute (%) Expected (%) (x10*9/L) (x10*9/L) Neutrophils: 5.0 (65.8) 1.7-7.0 (42-72%) Lymphocytes: 1.7 (22.4) 0.9-2.9 (20-44%) Monocytes: 0.6 (7.9) <0.9 (0-11%) Eosinophils: 0.2 (2.6) <0.5 (0-2%) Basophils: 0.1 (1.3) <0.3 (<3.0%) 08/25/2024 11:06 AM [facility] Microscopic Description The final diagnosis is based on microscopic examination of an appropriately stained blood smear. 08/25/2024 11:06 AM [facility] Additional Information Interpreted at [facility] - [address] [place] [address] [address] [facility] [address] [address] 08/25/2024 11:06 AM [facility] Blood BLOOD SPECIMEN / Unknown [facility] / Unknown 08/21/2024 12:22 PM 3D DESIGNER 08/21/2024 12:22 PM 3D DESIGNER Comment:CURRENT MEDICATIONSC urrent Outpatient Medications: adalimumab (HUMIRA PEN) 40 mg/0.4 mL pnkt, Inject subcutaneous., Disp: , Rfl: 0 B-D TB SYRINGE 1CC/27GX1/2 1 mL 27 x 1/2 syrg, To be used with injectable methotrexate, Disp: , Rfl: cholecalciferol (VITAMIN D-3) 2,000 unit capsule, Take 2 capsules by mouth once daily., Disp: , Rfl: 0 Contour Next Test Strips strip, USE TO TEST THREE TIMES A DAY, Disp: , Rfl: docusate (DOC-Q-LACE) 100 mg capsule, Take 1 capsule by mouth 2 times daily., Disp: 180 capsule, Rfl: 3 folic acid 1 mg tablet, Take 3 tablets by mouth once daily., Disp: 60 tablet, Rfl: [address] for continuous blood glucose monitor (CGM), To be used to read blood sugars follow senior procurement manager directions., Disp: 1 Each, Rfl: 0 hydroxychloroquine (PLAQUENIL) 200 mg tablet, Take 200 mg by mouth 2 times daily., Disp: , Rfl: Insulin [place], Disposable, (Novofine 32) 32 gauge x 1/4, For administering insulin at home., Disp: 300 Each, Rfl: 3 insulin NPH-regular (NovoLIN 70-30 FlexPen U-100) 100 unit/mL (70-30) pen, 20-25 units before the evening meal. and 30-35 units before the am meal., Disp: 30 mL, Rfl: 3 iron,carb/vit C/vit B12/folic (IRON 100 PLUS ORAL), Take by mouth., Disp: , Rfl: methotrexate 25 mg/mL injection, inject 0.9 mL by Subcutaneous route every week, Disp: , Rfl: 0 predniSONE (DELTASONE) 2.5 mg tablet, 2.5 tid, half the other 4 days, Disp: , Rfl: 3 environmental technical officer (FreeStyle [address]) for continuous blood glucose monitor (CGM), To be used to read blood sugars follow senior procurement manager directions., Disp: 1 Each, Rfl: 0 semaglutide (OZEMPIC) 2 mg/dose (8 mg/3 mL) pen, Inject 0.75 mL (2 mg) subcutaneous once weekly., Disp: 3 mL, Rfl: 4 sensor (FreeStyle Bambi 3 Sensor) for continuous blood glucose monitor (CGM), To be used to read blood sugars, follow senior procurement manager directions., Disp: 7 Each, Rfl: 3 simvastatin (ZOCOR) 10 mg tablet, TAKE 1 TABLET BY MOUTH ONCE DAILY WITH EVENING MEAL, Disp: 100 Tablet, Rfl: 2 venlafaxine (EFFEXOR XR) 150 mg Extended-Release capsule, TAKE 2 CAPSULES BY MOUTH ONCE DAILY WITH EVENING MEAL, Disp: 180 Capsule, Rfl: 3 Ivana Chowdhury MD HEMATOLOGY Fi nal Result Performing Organization Address [facility] Co de Phone Number [facility] [address] [address], [place] * RETICULOCYTES (08/21/2024 12:22 PM 3D DESIGNER) [facility] RETIC% 0.9 0.5 - 1.5 % 08/21/2024 3:33 PM 3D DESIGNER [facility] RETIC (ABSOLUTE) 0.04 0.03 - 0.08 mil/cu mm 08/21/2024 3:33 PM 3D DESIGNER [facility] Blood BLOOD SPECIMEN / Unknown [facility] / Unknown 08/21/2024 12:22 PM 3D DESIGNER 08/21/2024 12:22 PM 3D DESIGNER Ivana Chowdhury MD HEMATOLOGY Fi nal Result Performing Organization Address [facility] de Phone Number [facility] [address] [place] [address], [place] * XR TOES 3 VIEWS LEFT (08/13/2024 2:51 PM CDT) Anatomical Region Laterality Modality TOES Computed Radiogr aphy 08/13/2024 3:04 PM CDT Narrative 08/13/2024 3:04 PM CDT For Patients: As a result of the Century Cures Act, medical imaging exams and procedure reports are released immediately into your electronic medical record. You may view this report before your referring provider. If you have questions, please contact your health care provider. Indication: Type 2 diabetes with infection Technique: Three views left 2nd toe Comparison: 12/13/2019 Findings: Soft tissue swelling is present involving the 2nd toe. No soft tissue gas. No periostitis or fracture. Bone island within the 3rd toe distal phalanx. Impression: Cellulitis. No evidence of osteomyelitis. Dictated by Byron Diaz MD @ 08/13/2024 3:04:17 PM (Electronically Signed) Procedure Note Byron Diaz MD - 08/13/2024 For Patients: As a result of the Cures Act, medical imagingexams and procedure reports are released immediately into your electronicmedical record. You may view this report before your referring provider.If you have questions, please contact your health care provider. Indication: Type 2 diabetes with infection Technique: Three views left 2nd toe Comparison: 12/13/2019 Findings: Soft tissue swelling is present involving the 2nd toe. No soft tissue gas.No periostitis or fracture. Bone island within the 3rd toe distal phalanx. Impression: Cellulitis. No evidence of osteomyelitis. Dictated by Byron Diaz MD @ 08/13/2024 3:04:17 PM (Electronically Signed) Ivana Chowdhury MD GENERAL IMAGING Fi nal Result * (ABNORMAL) HEMOGLOBIN A1C MONITORING (POCT) (08/13/2024 2:41 PM CDT) Pathologist [facility] POC HEMOGLOBIN A1C 6.6(H) <6.0 % OF TOTAL HGB [facility] Comment: Any point of care results exhibiting inconsistency with the patient's clinical status should be repeated using a different testing method. Blood BLOOD SPECIMEN / Unknown 08/13/2024 2:41 PM CDT 08/13/2024 2:41 PM CDT Ivana Chowdhury MD CHEMISTRY Fi nal Result [facility] [address] [place] [address], [facility] [address] [place] [address] * (ABNORMAL) CBC AND DIFFERENTIAL (08/13/2024 2:40 PM CDT) Pathologist [facility] WHITE BLOOD CELL COUNT 8.9 3.8 - 10.8 Thousand/u L [facility] RED BLOOD CELL COUNT 4.42 3.80 - 5.10 Million/uL [facility] HEMOGLOBIN 11.1(L) 11.7 - 15.5 g/dL [facility] HEMATOCRIT 36.3 35.0 - 45.0 % [facility] MCV 82.1 80.0 - 100.0 fL [facility] MCH 25.1(L) 27.0 - 33.0 pg [facility] MCHC 30.6(L) 32.0 - 36.0 g/dL [facility] Comment: For adults, a slight decrease in the calculated MCHC value (in the range of 30 to 32 g/dL) is most likely not clinically significant; however, it should be interpreted with caution in correlation with other red cell parameters and the patient's clinical condition. RDW 17.6(H) 11.0 - 15.0 % [facility] PLATELET COUNT 136(L) 140 - 400 Thousand/u L [facility] MPV 9.9 7.5 - 12.5 fL [facility] ABSOLUTE NEUTROPHILS 5,892 1,500 - 7,800 cells/uL [facility] ABSOLUTE LYMPHOCYTES 2,092 850 - 3,900 cells/uL [facility] ABSOLUTE MONOCYTES 685 200 - 950 cells/uL [facility] ABSOLUTE EOSINOPHILS 196 15 - 500 cells/uL [facility] ABSOLUTE BASOPHILS 36 0 - 200 cells/uL [facility] NEUTROPHILS 66.2 % [facility] LYMPHOCYTES 23.5 % [facility] MONOCYTES 7.7 % [facility] EOSINOPHILS 2.2 % [facility] BASOPHILS 0.4 % [facility] Blood BLOOD SPECIMEN / Unknown 08/13/2024 2:40 PM CDT 08/13/2024 2:40 PM CDT Ivana Chowdhury MD HEMATOLOGY Fi nal Result [facility] [address] [facility] [facility] [place] [address], [place] [phone] [facility] [address] [place] [address] * ANTI-MITOCHONDRIAL ZAKI (07/23/2024 3:40 PM CDT) Pathologist [facility] MITOCHONDRIAL AB SCREEN NEGATIVE NEGATIVE [facility] Blood BLOOD SPECIMEN / Unknown 07/23/2024 3:40 PM CDT 07/23/2024 3:41 PM CDT Katherin Stallworth MD SEND OUTS Final Re sult Performing Organization Address [facility] Co de Phone Number [facility] [address] [facility] [place] [address], [place] [phone] [facility] [address] [facility] [place] [address] * GAMMA GT (07/23/2024 3:40 PM CDT) Pathologist [facility] GGT 18 3 - 70 U/L [facility] Blood BLOOD SPECIMEN / Unknown 07/23/2024 3:40 PM CDT 07/23/2024 3:41 PM CDT Katherin Stallworth MD CHEMISTRY Final Re sult Performing Organization Address [facility]/ZIP Co de Phone Number [facility] [address] [place] [address], [place] [phone] [facility] [address] [facility] [place] [address] * HEPATIC FUNCTION PANEL (07/23/2024 3:40 PM CDT) Pathologist [facility] PROTEIN, TOTAL 7.0 6.1 - 8.1 g/dL [facility] ALBUMIN 3.8 3.6 - 5.1 g/dL [facility] GLOBULIN 3.2 1.9 - 3.7 g/dL (calc) [facility] ALBUMIN/GLOBULIN RATIO 1.2 1.0 - 2.5 (calc) [facility] BILIRUBIN, TOTAL 0.3 0.2 - 1.2 mg/dL [facility] BILIRUBIN, DIRECT 0.1 < OR = 0.2 mg/dL [facility] BILIRUBIN, INDIRECT 0.2 0.2 - 1.2 mg/dL (calc) [facility] ALKALINE PHOSPHATASE 132 37 - 153 U/L [facility] AST 15 10 - 35 U/L [facility] ALT 12 6 - 29 U/L [facility] Blood BLOOD SPECIMEN / Unknown 07/23/2024 3:40 PM CDT 07/23/2024 6:56 PM CDT Katherin Stallworth MD CHEMISTRY Final Re sult Performing Organization Address City/State/[facility] Co de Phone Number [facility] [address] [place] [address], [facility] [address] [place] [address] * SCAN-COLONOSCOPY (07/09/2024 11:00 AM CDT) Narrative Procedure Note SeamusDameon Ballard MD - 07/09/2024 10:05 AM CDT [facility] [address] [place] [address], [address], [place] [id number] Patient Name: Pia Stevens Gender: Female Exam Date: 07/09/2024 Visit Number: [id number] Age: 54 Years Date of : 1970 Attending MD: Dameon Baldwin MD Medical Record#: [id number] Procedure: Colonoscopy Indications: Iron deficiency anemia Referring MD: Referral Self Primary MD: Radha Bird MD Medications: Admitting Medications: 0.9% Normal Saline at TKO Intra Procedure Medications: Patient received monitored anesthesia care. Admitting Medications: 0.9% Normal Saline at TKO Intra Procedure Medications: Patient received monitored anesthesia care. Complications: No immediate complications Procedure: An examination of the heart and lungs was performed and found to be withinacceptable limits. . The patient was therefore deemed a reasonablecandidate for endoscopy and sedation. The risks and benefits of the procedure were explained to the patient.After obtaining informed consent, the patient received monitoredanesthesia care and I passed the scope without difficulty via the rectum to the cecum. The appendiceal orificeand ic valve were identified. The scope was retroflexed during theexamination The quality of the prep was good (Miralax/Gatorade DoublePrep). This was a complete examination throughout the entire colon. Findings: Normal finding. Location - ileum. Polyp location: cecum. Quantity: 1. Size: 2 mm. Polyp shape: sessile. Maneuver: polypectomy was performed with a cold snare. Removal: complete. Retrieval: complete. Bleeding: none. Polyp location: transverse colon. Quantity: 2. Size: 4 mm, 7 mm. Polypshape: sessile. Maneuver: polypectomy was performed with a cold snare. Removal: complete. Retrieval: complete. Bleeding: none. Polyp location: sigmoid. Quantity: 2. Size: 3 mm, 5 mm. Polyp shape:sessile. Maneuver: polypectomy was performed with a cold snare. Removal: complete. Retrieval: complete. Bleeding: none. Hemorrhoids. Internal hemorrhoids without bleeding. Angioectasia. Location - ascending - transverse. Maneuver - APC. 3 Nobleeding. Remainder of the exam is normal. Impression: AVM (arteriovenous malformation) of colon Colorectal polyps Hemorrhoids, internal MD impression comments: Your small angioectasias can cause smallmicroscopic amounts of bleeding. I treated those by burning them with adevice called APC. We will wait for the biopsies of the polyps and I will recommend 1follow-up colonoscopy should be done. I will communicate these findings to your clinic provider to see if theywant to pursue any further testing such as an upper endoscopy. Preliminary Plan: The patient and their physician will receive a copy of the pathologyreport as well as pathology-based recommendations for future screening orsurveillance. Pathology Results: A: COLON, CECUM, POLYP: 1. Sessile serrated adenoma 2. Negative for overt dysplasia 3. Per the colonoscopy report: a. Polyp size: 2 mm b. Resection: Complete c. Retrieval: Complete B: COLON, TRANSVERSE, POLYPS: 1. Tubular adenomas (2) 2. Negative for high grade dysplasia 3. Per the colonoscopy report: a. Polyp sizes: 4 mm and 7 mm b. Resection: Complete c. Retrieval: Complete C: COLON, SIGMOID, POLYPS: 1. Tubular adenoma (1) and normal colonic mucosa (clinically, 2polyps) 2. Negative for high grade dysplasia 3. Per the colonoscopy report: a. Polyp sizes: 3 mm and 5 mm b. Resection: Complete c. Retrieval: Complete MICROSCOPIC A: Performed B: Performed C: Performed Electronically signed by: Danna Padilla MD Interpreted at [facility], [address] [place] [phone] Orders Instruction(s)/Education: Instruction/Education Timeframe Assessment Colon Cancer Prevention K63.5 Colon Polyps K63.5 Hemorrhoids K63.5 Final Plan: Repeat colonoscopy in 3 years for Colon cancer surveillance. We will attempt to contact you at appropriate intervals via [place] mail. Wemay not be able to find you or contact you at that time, therefore youshould know that the responsibility for following our recommendation restswith you. If you don't hear from us at the time your procedure is due,please contact our office to schedule an appointment. If your contactinformation should change, please contact our office so that we can updateyour record. Additional Comments: I will communicate the findings of the colonoscopy to your clinic providerto see if they want to perform the upper endoscopy or any further testingafter finding the angioectasias. _Electronically signed by: Dameon Baldwin MD 07/09/2024 cc: Radha Bird MD us Dameon Way MD OTHER Final Resu lt * XR MAMMO CARI BILAT SCREEN (03/18/2024 10:42 AM CDT) Anatomical Region Laterality Modality BREASTS, Breast Left, Breast Right Bilateral Mammography Impressions 03/19/2024 3:26 PM CDT There is no radiographic evidence for malignancy. Recommend annual mammograms. MAMMOGRAM ASSESSMENT: ACR 1 Negative PATIENTS: You will also receive a letter with your examination results in an easy to read format. If you have questions about your results, please contact your referring provider. Narrative 03/19/2024 3:26 PM CDT For Patients: As a result of the Century Cures Act, medical imaging exams and procedure reports are released immediately into your electronic medical record. You may view this report before your referring provider. If you have questions, please contact your health care provider. XR MAMMO CARI BILAT SCREEN [[id number]] CLINICAL HISTORY: This is an asymptomatic 53 y.o. patient. INDICATION FOR EXAM: Mammogram Screening. TECHNIQUE: CC & MLO views were obtained. This study was evaluated with the assistance of Computer-Aided Detection. Breast Tomosynthesis was used in interpretation. COMPARISON FILM: Yes 09/02/20 [facility] 06/01/18 [facility] [employer] FINDINGS: The breasts are almost entirely fatty. There are no dominant masses, suspicious micro calcifications or areas of architectural distortion. Radha Bird DO MAMMO Final Resul t * LC HCV ANTIBODY RFX TO QUANT PCR (03/10/2023 11:01 AM CDT) HCV Ab Non Reactive Non Reactive 03/15/2023 10:06 PM CDT [facility] Blood BLOOD SPECIMEN / Unknown Venipuncture / Unknown 03/10/2023 11:01 AM CDT 03/10/2023 11:01 AM CDT Narrative [facility] ([facility]) - 03/15/2023 10:06 PM CDT Performed at: [address] [place] [id number] Director Of Creative Services: Ty Wu MD, Phone: [phone] Radha Bird DO LABORATORY Final Resul t Performing Organization Address City/[facility]/ZIP Co de Phone Number [facility] ([facility]) [address] [place] [address], * LC HIV-1/O/2, 4TH GENERATION (03/10/2023 11:01 AM CDT) HIV Scr 4th Gen Non Reactive Non Reactive 03/15/2023 11:09 AM CDT [facility] ([facility]) Comment: HIV Negative HIV-1/HIV-2 antibodies and HIV-1 p24 antigen were NOT detected. There is no laboratory evidence of HIV infection. Blood BLOOD SPECIMEN / Unknown Venipuncture / Unknown 03/10/2023 11:01 AM CDT 03/10/2023 11:01 AM CDT Narrative [facility] ([facility]) - 03/15/2023 11:09 AM CDT Performed at: [address] [place] [id number] Director Of Creative Services: Ty Wu MD, Phone: [phone] Radha Bird DO LABORATORY Final Resul t Performing Organization Address City/[facility] Co de Phone Number [facility] ([facility]) [address] [place] [address], * LIPID PANEL W REFLEX MEASURED LDL (09/23/2022 9:32 AM 3D DESIGNER) CHOLESTEROL,TOTAL 168 100 - 199 mg/dL 09/25/2022 11:23 AM 3D DESIGNER [facility] TRIGLYCERIDES 81 <150 mg/dL 09/25/2022 11:23 AM 3D DESIGNER [facility] HDL CHOLESTEROL 66 >40 mg/dL 11:23 AM 3D DESIGNER [facility] NON-HDL CHOLESTEROL 102 <145 mg/dl 09/25/2022 11:23 AM 3D DESIGNER [facility] CHOL/HDL RATIO 2.55 <4.50 09/25/2022 11:23 AM 3D DESIGNER [facility] TR[facility] LDL CHOLESTEROL 86 <=130 mg/dL 09/25/2022 11:23 AM 3D DESIGNER [facility] TR[facility] VLDL CHOLESTEROL 16 <=30 mg/dL 09/25/2022 11:23 AM 3D DESIGNER [facility] TRAL LABOR[facility] PROVIDER ORDERED STATUS RANDOM 09/25/2022 11:23 AM 3D DESIGNER [facility] TRAL LABOR[facility]ORY Blood BLOOD SPECIMEN / Unknown Venipuncture / Unknown 09/23/2022 9:32 AM 3D DESIGNER 09/23/2022 9:33 AM 3D DESIGNER us Radha Bird DO CHEMISTRY Final Resul t [facility] [address] [place] [address], from Last 3 Months or Most Recently Relevant to Health Maintenance Insurance MEDICARE PART B ONLY [facility] ATTN: [place] [address] [facility] MEDICARE PART A HB ONLY MEDICARE PART B HB ONLY Advance Directives * Full Code (Latest Code Status on File) Date Activated Date Inactivated Comments 10/04/2023 7:25 AM 10/04/2023 11:11 AM Question Answer Comments Code Status Discussion: Unable to Assess Preferences, Provider to review later * Full Code Date Activated Date Inactivated Comments 06/11/2020 7:45 AM 06/11/2020 5:56 PM * Full Code Date Activated Date Inactivated Comments 09/17/2013 10:40 PM 09/24/2013 3:06 PM * Full Code Date Activated Date Inactivated Comments 10/14/2007 9:05 PM 10/16/2007 12:06 PM * Full Code Date Activated Date Inactivated Comments 05/21/2007 1:17 AM 05/23/2007 8:02 PM Care Teams Manager Ob Relationship Specialty Start Date End Date Ivana Chowdhury MD [address] [place] [address] PCP - General Family Practice 08/13/24 Aime Gordon General Surgery Surgery - General 12/03/12 Chele Del Toro MD Rheumatology Rheumatology 02/11/13 [place] [address] [place] [address] Mental Health Provider Psychology 03/05/20
--- NOTE | 2024-10-20 14:28 | ED.GENADULT ---
HPI - General Adult General Date Seen: 10/20/24 <Jamir Calvo MD - Last Filed: 10/26/24 08:00> Chief complaint: Nausea/Vomiting <Jamir Calvo MD - Last Filed: 10/26/24 08:00> Stated complaint: vomiting, aches, fever <Jamir Calvo MD - Last Filed: 10/26/24 08:00> Time Seen by Provider: 10/20/24 14:27 <Jamir Calvo MD - Last Filed: 10/26/24 08:00> History of Present Illness HPI narrative: This is a 50-year-old female brought to the ER today by EMS from her home for evaluation of fever, body aches, nausea and vomiting. She has a past medical history of rheumatoid arthritis (on or Humira, prednisone, Plaquenil), type 2 diabetes (on insulin, Ozempic), foot ulcer, GERD, hyperlipidemia, anxiety. She has a history of gallstones apparently noted incidentally on an ultrasound. 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 She notes that yesterday she started having a flare of joint pain especially in her knees. Today she is having a flare pain in her hips but also throughout her body including her back, hips, knees, legs, and headache. With that she has also had shakes and chills. No fevers. She has also had a lot of nausea with multiple episodes of nonbloody emesis. With several of her vomiting spell she also was incontinent of urine. She is not having diarrhea. She has had some sneezing for the past couple of months but no cough. She is not short of breath. She was feeling very weak and was concerned because she does not normally have incontinence of urine. She called the ambulance for herself today. She has had some sneezing for the past couple weeks but no cough. She has not feel short of breath. She does have body aches, including back pain, bilateral hip pain, joint aches in her knees. She is not sure what is a flare of her arthritis and was due to some new problem. She is not having any chest pain. She does have headache. She has been nauseous with multiple episodes of nonbilious, nonbloody emesis. <Jamir Calvo MD - Last Filed: 10/26/24 08:00> Related Data Home medications: Home Medications ?Medication ?Instructions ?Recorded ?Confirmed adalimumab 40 mg/0.8 mL 40 mg subcut Q2W 04/25/23 04/25/23 subcutaneous syringe kit (Humira) cholecalciferol (vitamin D3) 50 50 mcg PO DAILY 04/25/23 04/25/23 mcg (2,000 unit) capsule docusate sodium 100 mg capsule 100 mg PO DAILY 04/25/23 04/25/23 folic acid 1 mg tablet 1 mg PO DAILY 04/25/23 04/25/23 hydroxychloroquine 200 mg tablet 200 mg PO DAILY 04/25/23 04/25/23 (Plaquenil) insulin NPH-regular 70-30 U-100 See Rx Instructions subcut BID 04/25/23 04/25/23 insulin 100 unit/mL subcutaneous pen methotrexate (PF) 25 mg/0.5 mL 25 mg subcut QWEEK 04/25/23 04/25/23 subcutaneous auto-injector prednisone 2.5 mg tablet 2.5 mg PO DAILY 04/25/23 04/25/23 semaglutide 2 mg/dose (8 mg/3 mL) 0.5 mg subcut QWEEK 04/25/23 04/25/23 subcutaneous pen injector simvastatin 10 mg tablet 10 mg PO DAILY 04/25/23 04/25/23 venlafaxine 150 mg tablet,extended 150 mg PO DAILY 04/25/23 04/25/23 release 24 hr <Jamir Calvo MD - Last Filed: 10/26/24 08:00> Allergies/adverse reactions: Allergies Allergy/AdvReac Type Severity Reaction Status Date / Time codeine Allergy Mild Nausea Verified 10/20/24 14:22 sulfasalazine Allergy Rash Verified 10/20/24 14:22 pineapple AdvReac Vomiting Verified 10/20/24 14:22 topiramate (From Topamax) AdvReac Verified 10/20/24 14:22 <Jamir Calvo MD - Last Filed: 10/26/24 08:00> [facility] Social History: Social History Smoking Status: Never smoker Do you use any of these nicotine containing products: None Second hand tobacco smoke exposure: No How often do you have a drink containing alcohol: never AUDIT-C Alcohol total score: 0 Non-prescribed substance use: denies use <Jamir Calvo MD - Last Filed: 10/26/24 08:00> Exam Narrative: Exam Narrative: Constitutional: Appears well-developed and well-nourished. Alert. Conversant. Somewhat anxious and jumps rapidly from thought to thought. She is concerned because she is the caregiver for her . Somewhat tired appearing. Overall though is nontoxic. HENT: Head: Atraumatic. Nose: Nose normal. Mouth/Throat: Oral mucosa is clear but dry. Mucous membranes are not desiccated or cracked. no trismus. Pharynx normal. Tonsils symmetric. No tonsillar enlargement, erythema, or exudate. Eyes: Conjunctivae normal. EOM normal. Pupils equal, round, and reactive to light. No scleral icterus. Neck: Normal range of motion. Neck supple. No tracheal deviation present. Cardiovascular: Normal rate, regular rhythm. No gallop. No friction rub. No murmur heard. Symmetric radial artery pulses Pulmonary/Chest: Effort normal. No stridor. No respiratory distress. No wheezes. No rales. No rhonchi . No tenderness. Abdominal: Soft. Bowel sounds normal. No distension. No mass. No tenderness. No rebound. No guarding. Low back tenderness without any focal CVA tenderness Musculoskeletal: No midline step-off or tenderness over the midline thoracic or lumbar spines. Pelvis is stable. RUE: Normal range of motion. No tenderness. No deformity LUE: Normal range of motion. No tenderness. No deformity RLE: Normal range of motion. No edema. No tenderness. No deformity LLE: Normal range of motion. No edema. No tenderness. No deformity. She has a chronic appearing ulcer on the tip of her low left foot 2nd toe. The ulcer is dry. No gangrene. No purulent drainage. There is minimal erythema of that toe but she says her toes been like that for a few months and is not worse than normal. No other erythema extending up the foot. No clear evidence for an active infection in that toe at this time. Neurological: Alert and oriented to person, place, and time. Normal strength. CN II-VII intact. No sensory deficit. GCS eye subscore is 4. GCS verbal subscore is 5. GCS motor subscore is 6. Normal coordination able to ambulate under her own power without limping in the hallway back and forth to the bathroom. Skin: Skin is warm and dry. No rash noted. No pallor. Normal capillary refill. Psychiatric: Normal mood. Normal affect. <Jamir Calvo MD - Last Filed: 10/26/24 08:00> Const: Vital Signs, click to edit/add: Vital Signs - 24 hr 10/20/24 14:19 10/20/24 19:37 10/20/24 20:49 Temperature 100.6 F H 99.0 F Pulse Rate [Left P ulse Oximeter] 109 H Respiratory Rate 18 Blood Pressure [Ri ght Upper Arm] 119/48 L Pulse Oximetry 96 96 Oxygen Delivery Me thod Room Air <Jamir Calvo MD - Last Filed: 10/26/24 08:00> Vital Signs, click to edit/add: Vital Signs - 24 hr 10/20/24 14:19 10/20/24 19:37 10/20/24 20:49 Temperature 100.6 F H 99.0 F Pulse Rate [Left P ulse Oximeter] 109 H Respiratory Rate 18 Blood Pressure [Ri ght Upper Arm] 119/48 L Pulse Oximetry 96 96 Oxygen Delivery Me thod Room Air <Neelam Gifford MD - Last Filed: 10/20/24 21:17> Course Course ED Course: Recheck-says her pain is down from a 10/10, now down to an 8/10. He is ambulatory in the hallway to go to the bathroom. For recheck-nurses report that she was trying to give a urine sample by clean catch but ?missed the hat. ? therefore urine sample was not obtained. <Jamir Calvo MD - Last Filed: 10/26/24 08:00> Reevaluation(s) Reevaluation #1: Recheck-drinking water. Hemodynamically stable. Alert. Conversant. <Jamir Calvo MD - Last Filed: 10/26/24 08:00> Reevaluation #2: Recheck-ambulatory in the hallway. Was in the bathroom but although her bladder feels full, she just can not urinate. She does not want to do a catheter. <Jamir Calvo MD - Last Filed: 10/26/24 08:00> Reevaluation #3: Recheck-in the bathroom again. Still able to drink. No recurrent vomiting. Still not able to provide urine. I did a bedside ultrasound does confirm that there is urine in her bladder. Patient agreeable to try catheter. Discussed options with the patient and her daughter and they agree. <Jamir Calvo MD - Last Filed: 10/26/24 08:00> Additional Reevaluation(s): 9:17 p.m.: Urinalysis is back and not showing any evidence of infection. Likely gastroenteritis, patient will be discharged to home as planned. <Neelam Gifford MD - Last Filed: 10/20/24 21:17> Vital Signs Vital signs: Initial Vital Signs Temperature 100.6 F H 10/20/24 14:19 Temperature Source Temporal Artery Scan 10/20/24 14:19 Pulse Rate 109 H 10/20/24 14:19 Pulse Rhythm Regular 10/20/24 14:19 Pulse Strength 3+ Normal 10/20/24 14:19 Respiratory Rate 18 10/20/24 14:19 Blood Pressure 119/48 L 10/20/24 14:19 Blood Pressure Mean 71 10/20/24 14:19 Blood Pressure Position Supine 10/20/24 14:19 Pulse Oximetry 96 10/20/24 14:19 Oxygen Delivery Method Room Air 10/20/24 14:19 Vital Signs Temperature 100.6 F H 10/20/24 14:19 Pulse Rate 109 H 10/20/24 14:19 Respiratory Rate 18 10/20/24 14:19 Blood Pressure 119/48 L 10/20/24 14:19 Pulse Oximetry 96 10/20/24 14:19 Oxygen Delivery Method Room Air 10/20/24 14:19 Temperature 99.0 F 10/20/24 21:22 Pulse Rate 89 10/20/24 21:22 Respiratory Rate 18 10/20/24 21:22 Blood Pressure 110/74 10/20/24 21:22 Pulse Oximetry 96 10/20/24 21:21 Oxygen Delivery Method Room Air 10/20/24 21:21 <Jamir Calvo MD - Last Filed: 10/26/24 08:00> Initial Vital Signs Temperature 100.6 F H 10/20/24 14:19 Temperature Source Temporal Artery Scan 10/20/24 14:19 Pulse Rate 109 H 10/20/24 14:19 Pulse Rhythm Regular 10/20/24 14:19 Pulse Strength 3+ Normal 10/20/24 14:19 Respiratory Rate 18 10/20/24 14:19 Blood Pressure 119/48 L 10/20/24 14:19 Blood Pressure Mean 71 10/20/24 14:19 Blood Pressure Position Supine 10/20/24 14:19 Pulse Oximetry 96 10/20/24 14:19 Oxygen Delivery Method Room Air 10/20/24 14:19 Vital Signs Temperature 100.6 F H 10/20/24 14:19 Pulse Rate 109 H 10/20/24 14:19 Respiratory Rate 18 10/20/24 14:19 Blood Pressure 119/48 L 10/20/24 14:19 Pulse Oximetry 96 10/20/24 14:19 Oxygen Delivery Method Room Air 10/20/24 14:19 Temperature 99.0 F 10/20/24 21:22 Pulse Rate 89 10/20/24 21:22 Respiratory Rate 18 10/20/24 21:22 Blood Pressure 110/74 10/20/24 21:22 Pulse Oximetry 96 10/20/24 21:21 Oxygen Delivery Method Room Air 10/20/24 21:21 <Neelam Gifford MD - Last Filed: 10/20/24 21:17> Medications Administered Medications: Discontinued Medications Generic Name Dose Route Start Last Admin Trade Name Freq PRN Reason Stop Dose Admin Hydrocodone Bitart/Acetaminophen 1 tab 10/20/24 16:19 10/20/24 16:26 Hydrocodone-Acetamin 5-325 Mg 1 Tab PO 10/20/24 16:20 1 tab ONCE ONE Administration Hydrocodone Bitart/Acetaminophen 1 tab 10/20/24 17:21 10/20/24 17:29 Hydrocodone-Acetamin 5-325 Mg 1 Tab PO 10/20/24 17:22 1 tab ONCE ONE Administration Sodium Chloride 500 mls @ 500 mls/hr 10/20/24 15:03 10/20/24 16:12 0.9 % Sodium Chloride 500 Ml IV 10/20/24 16:02 Infused .Q1H ONE Infusion Sodium Chloride 500 mls @ 500 mls/hr 10/20/24 17:27 10/20/24 19:50 0.9 % Sodium Chloride 500 Ml IV 10/20/24 18:26 Infused .Q1H ONE Infusion Sodium Chloride 500 mls @ 500 mls/hr 10/20/24 19:34 10/20/24 19:50 0.9 % Sodium Chloride 500 Ml IV 10/20/24 20:33 Infused .Q1H ONE Infusion Ketorolac Tromethamine 15 mg 10/20/24 15:03 10/20/24 15:15 Ketorolac 15 Mg/Ml Inj IVP 10/20/24 15:04 15 mg ONCE ONE Administration Ondansetron HCl 4 mg 10/20/24 15:03 10/20/24 15:15 Ondansetron 2 Mg/Ml Inj IVP 10/20/24 15:04 4 mg ONCE ONE Administration <Jamir Calvo MD - Last Filed: 10/26/24 08:00> Discontinued Medications Generic Name Dose Route Start Last Admin Trade Name Freq PRN Reason Stop Dose Admin Hydrocodone Bitart/Acetaminophen 1 tab 10/20/24 16:19 10/20/24 16:26 Hydrocodone-Acetamin 5-325 Mg 1 Tab PO 10/20/24 16:20 1 tab ONCE ONE Administration Hydrocodone Bitart/Acetaminophen 1 tab 10/20/24 17:21 10/20/24 17:29 Hydrocodone-Acetamin 5-325 Mg 1 Tab PO 10/20/24 17:22 1 tab ONCE ONE Administration Sodium Chloride 500 mls @ 500 mls/hr 10/20/24 15:03 10/20/24 16:12 0.9 % Sodium Chloride 500 Ml IV 10/20/24 16:02 Infused .Q1H ONE Infusion Sodium Chloride 500 mls @ 500 mls/hr 10/20/24 17:27 10/20/24 19:50 0.9 % Sodium Chloride 500 Ml IV 10/20/24 18:26 Infused .Q1H ONE Infusion Sodium Chloride 500 mls @ 500 mls/hr 10/20/24 19:34 10/20/24 19:50 0.9 % Sodium Chloride 500 Ml IV 10/20/24 20:33 Infused .Q1H ONE Infusion Ketorolac Tromethamine 15 mg 10/20/24 15:03 10/20/24 15:15 Ketorolac 15 Mg/Ml Inj IVP 10/20/24 15:04 15 mg ONCE ONE Administration Ondansetron HCl 4 mg 10/20/24 15:03 01/05/25 15:15 Ondansetron 2 Mg/Ml Inj IVP 10/20/24 15:04 4 mg ONCE ONE Administration <Neelam Gifford MD - Last Filed: 10/20/24 21:17> Medical Decision Making [facility] Narrative Medical decision making narrative: 54-year-old female with a history of rheumatoid arthritis on immunosuppressive is a including prednisone 2.5 mg 3 times a week, methotrexate, hydroxychloroquine, and Humira.. Also with diabetes on insulin and some Mag with type. She presents to the ER today with diffuse body aches, joint aches including both knees, both hips, low back, headache, shoulders. Also with this she has had nausea with several episodes of vomiting and some urinary incontinence today. Given current prevalence of influenza in the community nurses obtained influenza/COVID/RSV swab the time of arrival. It is negative. She does have of fever and a sinus tachycardia. Lab shows leukocytosis with a white count of 16.7. She does meet criteria for sepsis but overall is well appearing, despite her discomfort. Venous lactic acid is normal. Concern here is for possible UTI with her urinary symptoms and fever today. Unfortunately she was not able to provide urine sample here in the ER and was not able to collect urine on her 1st void here in the ER. Patient had several hours of delay here in the ER while she was receiving oral and IV hydration in attempt to provide urine sample. During this time her blood pressure remained stable. Overall she was clinically feeling better. Heart rate remained slightly elevated with a sinus tachycardia just over 100. Saturations remained normal. She had no cough or difficulty breathing to suggest URI or pneumonia as a cause for her fever. CT scan is negative for any acute intra-abdominal abnormality such as diverticulitis, colitis, appendicitis. Gallbladder is normal on the CT scan save for the presence of previously known kidney stones. No evidence for any pericholecystic fluid. She is not having any spine pain localizing specifically to her right upper quadrant suggest acute cholecystitis as a cause for her symptoms. Although she has a headache as part of her symptoms, headache is not the most predominant area pain. I do not think she has meningitis. At this point the risk/discomfort of lumbar puncture would outweigh the benefit. Blood culture is pending. At the time of this dictation urine straight cath this in progress. Discussed my partner, Dr. Euceda will follow-up on the urinalysis results. If it is abnormal she will treat with a dose of Rocephin IV here in the ER and then the patient can discharge home with oral antibiotics. I have written empiric prescriptions for Zofran and Niland for the patient to use for symptomatic management at home. <Jamir Calvo MD - Last Filed: 10/26/24 08:00> Lab Data Labs: Lab Results 10/20/24 10/20/24 10/20/24 Range/Units 14:19 15:13 20:40 WBC 16.78 H (4.50-11.00) K/uL RBC 4.49 (4.00-5.20) m/uL Hgb 11.3 L (12.0-16.0) gm/dL Hct 36.4 (33.0-51.0) % MCV 81 (80-100) fL MCH 25 L (26-34) pg MCHC 31 L (32-36) gm/dL RDW Coeff of Wily 18.1 H (11.5-15.5) % Plt Count 230 (140-440) K/uL Neut % (Auto) 89.4 H (42.0-72.0) % Lymph % (Auto) 3.0 L (20-44) % [place] % (Auto) 6.6 (0.0-11.0) % Eos % (Auto) 0.5 (0.0-7.0) % Baso % (Auto) 0.1 (0.0-3.0) % Neut # (Auto) 15.00 H (1.7-7.0) K/uL Lymph # (Auto) 0.50 L (0.90-2.90) K/uL [place] # (Auto) 1.10 H (0.00-0.90) K/UL Eos # (Auto) 0.10 (0.00-0.50) K/uL Baso # (Auto) 0.00 (0.00-0.30) K/uL Abs Immat Gran (auto) 0.10 (0.00-0.30) K/uL Imm/Tot Granulo (auto) 0.4 % VBG pH 7.448 H (7.32-7.43) VBG pCO2 43 (40-50) mmHG VBG pO2 34.7 (25-47) mmHG VBG HCO3 30 H (21-28) mmol/L Sodium 136 (135-149) mmol/L Potassium 3.7 (3.6-5.1) mmol/L Chloride 104 (96-114) mmol/L Carbon Dioxide 30 (20-32) mmol/L Anion Gap 2 L (7-15) mEq/L BUN 15 (7-30) mg/dL Creatinine 0.9 (0.5-1.5) mg/dL Estimated Creat Clear 64.30 Estimated GFR 76 ml/min Glucose 82 (60-115) mg/dL Lactate 1.3 (0.5-1.9) mmol/L Calcium 8.7 (8.4-10.6) mg/dL Total Bilirubin 0.5 (0.1-1.5) mg/dL AST 24 (12-35) U/L ALT 19 (4-35) U/L Alkaline Phosphatase 117 (40-150) U/L Total Protein 6.7 (6.0-8.3) g/dL Albumin 3.6 (3.3-5.0) g/dL Lipase Cancelled Urine Color Yellow (Yellow) Urine Appearance Clear (Clear) Urine pH 6.0 (5.0-8.5) Ur Specific [place] 1.010 (1.000-1.030) Urine Protein Negative (Negative) Urine Glucose (UA) Negative (Negative) Urine Ketones Negative (Negative) Urine Blood Negative (Negative) Urine Nitrite Negative (Negative) Urine Bilirubin Negative (Negative) Urine Urobilinogen 0.2 (0.2-1.0) Ur Leukocyte Esterase Negative (Negative) Urine RBC 0-2 (0-2) Urine WBC 0-2 (0-5) Ur Squamous Epith Cells None (None-Few) Urine Bacteria None (None) SARS-CoV-2 (PCR) Negative SARS-CoV-2 (Negative) Influenza Type A (PCR) Negative PCR FLU A (Negative) Influenza Type B (PCR) Negative PCR FLU B (Negative) RSV (PCR) Negative PCR RSV (Negative) <Jamir Calvo MD - Last Filed: 10/26/24 08:00> Lab Results 10/20/24 10/20/24 10/20/24 Range/Units 14:19 15:13 20:40 WBC 16.78 H (4.50-11.00) K/uL RBC 4.49 (4.00-5.20) m/uL Hgb 11.3 L (12.0-16.0) gm/dL Hct 36.4 (33.0-51.0) % MCV 81 (80-100) fL MCH 25 L (26-34) pg MCHC 31 L (32-36) gm/dL RDW Coeff of Wily 18.1 H (11.5-15.5) % Plt Count 230 (140-440) K/uL Neut % (Auto) 89.4 H (42.0-72.0) % Lymph % (Auto) 3.0 L (20-44) % [place] % (Auto) 6.6 (0.0-11.0) % Eos % (Auto) 0.5 (0.0-7.0) % Baso % (Auto) 0.1 (0.0-3.0) % Neut # (Auto) 15.00 H (1.7-7.0) K/uL Lymph # (Auto) 0.50 L (0.90-2.90) K/uL [place] # (Auto) 1.10 H (0.00-0.90) K/UL Eos # (Auto) 0.10 (0.00-0.50) K/uL Baso # (Auto) 0.00 (0.00-0.30) K/uL Abs Immat Gran (auto) 0.10 (0.00-0.30) K/uL Imm/Tot Granulo (auto) 0.4 % VBG pH 7.448 H (7.32-7.43) VBG pCO2 43 (40-50) mmHG VBG pO2 34.7 (25-47) mmHG VBG HCO3 30 H (21-28) mmol/L Sodium 136 (135-149) mmol/L Potassium 3.7 (3.6-5.1) mmol/L Chloride 104 (96-114) mmol/L Carbon Dioxide 30 (20-32) mmol/L Anion Gap 2 L (7-15) mEq/L BUN 15 (7-30) mg/dL Creatinine 0.9 (0.5-1.5) mg/dL Estimated Creat Clear 64.30 Estimated GFR 76 ml/min Glucose 82 (60-115) mg/dL Lactate 1.3 (0.5-1.9) mmol/L Calcium 8.7 (8.4-10.6) mg/dL Total Bilirubin 0.5 (0.1-1.5) mg/dL AST 24 (12-35) U/L ALT 19 (4-35) U/L Alkaline Phosphatase 117 (40-150) U/L Total Protein 6.7 (6.0-8.3) g/dL Albumin 3.6 (3.3-5.0) g/dL Lipase Cancelled Urine Color Yellow (Yellow) Urine Appearance Clear (Clear) Urine pH 6.0 (5.0-8.5) Ur Specific [place] 1.010 (1.000-1.030) Urine Protein Negative (Negative) Urine Glucose (UA) Negative (Negative) Urine Ketones Negative (Negative) Urine Blood Negative (Negative) Urine Nitrite Negative (Negative) Urine Bilirubin Negative (Negative) Urine Urobilinogen 0.2 (0.2-1.0) Ur Leukocyte Esterase Negative (Negative) Urine RBC 0-2 (0-2) Urine WBC 0-2 (0-5) Ur Squamous Epith Cells None (None-Few) Urine Bacteria None (None) SARS-CoV-2 (PCR) Negative SARS-CoV-2 (Negative) Influenza Type A (PCR) Negative PCR FLU A (Negative) Influenza Type B (PCR) Negative PCR FLU B (Negative) RSV (PCR) Negative PCR RSV (Negative) <Neelam Gifford MD - Last Filed: 10/20/24 21:17> Imaging Data CT scan - abdomen: Attestation: I have reviewed the pertinent imaging results. <Jamir Calvo MD - Last Filed: 10/26/24 08:00> Radiologist's impression: IMPRESSION: 1. No acute intra-abdominal pathology. In particular, no evidence of obstructing or nonobstructing renal calculi. No hydronephrosis. <Jamir Calvo MD - Last Filed: 10/26/24 08:00> Discharge Plan Discharge Clinical Impression: Nausea & vomiting, Leukocytosis, Myalgia <Jamir Calvo MD - Last Filed: 10/26/24 08:00> Patient Disposition: Home, Self-Care <Jamir Calvo MD - Last Filed: 10/26/24 08:00> Condition: Stable <Jamir Calvo MD - Last Filed: 10/26/24 08:00> Instructions: Gastroenteritis (ED), Acute Nausea and Vomiting (ED) <Jamir Calvo MD - Last Filed: 10/26/24 08:00> Additional Instructions: Can use Zofran for further nausea and vomiting. Push fluids, appetite will improve as you feel better. Review handouts. He if you are not improving over the next couple days, have further concerns, please seek re-evaluation. <Jamir Calvo MD - Last Filed: 10/26/24 08:00> Activity Level: Activity as Tolerated <Jamir Calvo MD - Last Filed: 10/26/24 08:00> Activity as Tolerated <Neelam Gifford MD - Last Filed: 10/20/24 21:17> Prescriptions: No Action Humira 40 mg/0.8 mL syringe kit 40 mg subcut Q2W cholecalciferol (vitamin D3) 50 mcg (2,000 unit) capsule 50 mcg PO DAILY docusate sodium 100 mg capsule 100 mg PO DAILY folic acid 1 mg tablet 1 mg PO DAILY hydroxychloroquine [Plaquenil] 200 mg tablet 200 mg PO DAILY methotrexate (PF) 25 mg/0.5 mL auto-injector 25 mg subcut QWEEK insulin NPH and regular human 100 unit/mL (70-30) insulin pen See Rx Instructions subcut BID Rx Instructions: subcutaneously twice a day; prednisone 2.5 mg tablet 2.5 mg PO DAILY semaglutide 2 mg/dose (8 mg/3 mL) pen injector 0.5 mg subcut QWEEK simvastatin 10 mg tablet 10 mg PO DAILY venlafaxine 150 mg tablet extended release 24hr 150 mg PO DAILY <Jamir Calvo MD - Last Filed: 10/26/24 08:00> Follow Up/Referrals: Radha Bird DO [Primary Care Provider] - <Jamir Calvo MD - Last Filed: 10/26/24 08:00> Stand Alone Forms: My[facility] Info Instructions <Jamir Calvo MD - Last Filed: 10/26/24 08:00>
[2024-10-20 15:00] LABS: PCR FLU A Negative PCR FLU A (Negative); PCR FLU B Negative PCR FLU B (Negative); PCR RSV Negative PCR RSV (Negative); SARS PCR* Negative SARS-CoV-2 (Negative)
[2024-10-20] MEDS: ONDANSETRON 2 MG/ML inj 4 MG IVP (15:15)
[2024-10-20] MEDS: 0.9 % SODIUM CHLORIDE 500 ML 500 ML IV ×3 (15:15→19:37)
[2024-10-20] MEDS: KETOROLAC 15 MG/ML inj IVP (15:15)
[2024-10-20 15:24] LABS: HCO3 VBG 30 mmol/L (21-28); PCO2 VBG 43 mmHG (40-50); PO2 VBG 34.7 mmHG (25-47); pH VBG 7.448 (7.32-7.43)
[2024-10-20 15:27] LABS: Basophils Percent Auto 0.1 % (0.0-3.0); Eosinophils Percent Auto 0.5 % (0.0-7.0); Hematocrit 36.4 % (33.0-51.0); Hemoglobin* 11.3 gm/dL (12.0-16.0); Immature Granulocytes Pct Auto 0.4 %; Mean Corpuscular HGB Conc 31 gm/dL (32-36); Mean Corpuscular Hemoglobin 25 pg (26-34); Mean Corpuscular Volume 81 fL (80-100); Monocytes Percent Auto 6.6 % (0.0-11.0); Neutrophils Percent Auto 89.4 % (42.0-72.0); Platelet Count* 230 K/uL (140-440); RDW Coefficient of Variation % 18.1 % (11.5-15.5); Red Blood Count 4.49 m/uL (4.00-5.20); Slide Review Reflex No; White Blood Count* 16.78 K/uL (4.50-11.00)
--- OUTSIDE RECORDS SUMMARY | 2024-10-20 15:27 | XMS_ITS | Clinical Summary ---
Author Organization [facility] Address [place], [place] [address] Care Team Providers Care Service Promoter Salesperson Name Role Phone Gordon Aime Paez Unavailable Unavailab Chele Trevino MD Unavailable Celia Dos Santos PsyD, LP Unavailable [phone] Ivana Chowdhury MD Primary Care Prov ider [...] 4 days 3 01/29/20 19 Active Insulin [place], Disposable, (Novofine 32) 32 gauge x 1/4Indications: [...] 3 09/11/20 23 Active FreeStyle Bambi 3 [place] for continuous blood glucose monitor (CGM)Indications :Insulin dependent type 2 diabetes mellitus, controlled (HC) To be used to read blood sugars follow computer networker directions. 1 Each 03/18/20 24 Active satellite project site monitor (FreeStyle Bambi 3 [place]) for continuous blood glucose monitor (CGM)Indications :Insulin dependent type 2 diabetes mellitus, controlled (HC) To be used to read blood sugars follow computer networker directions. 1 Each 03/18/20 24 Active iron,carb/vit [...] be used to read blood sugars, follow computer networker directions. 7 Each 3 07/01/20 24 Active [...] 11/01/2021 Assessment & Plan (12/13/2022 9:47 AM COSMETOLOGY INSTRUCTOR): chart update only Trigger thumb, acquired 05/18/2021 Trigger index finger of right hand 05/18/2021 Pelvic mass 05/21/2020 Tardive dyskinesia 03/18/2020 Psychophysiological insomnia 08/06/2019 Generalized anxiety disorder 03/20/2018 Controlled substance agreement signed 10/20/2016 Overview (10/20/2016): Controlled substance agreement for Lorazepam on file and signed 10/20/2016. Designated pharmacy: [facility] [phone] Prescribing physician:Dr. Kylee Stacy MD. Diagnosis: Depression [...] on file and signed 07/01/2015. Designated pharmacy: [facility] [phone] Prescribing physician: Dr. Kylee Stacy MD . Diagnosis: Major Depressive Disorder. Whitley Davis .................... 07/01/2015 2:05 PM Hyperlipidemia LDL goal < 100 06/05/2015 Dysthymic disorder 03/28/2014 Unspecified personality disorder 02/28/2014 Rheumatoid arthritis, adult 02/28/2014 Assessment & Plan (12/13/2022 9:47 AM COSMETOLOGY INSTRUCTOR): chart update only. Major depressive disorder, recurrent [...] Type Department Care Team Description 10/03/2024 Telephone [facility] [address] [place] [address] Ivana Chowdhury MD Screening (Spine Center) 10/01/2024 Orders Only [facility] [address] [place] [address] Peace Ruth MD <No scans attached> 09/30/2024 Telephone [facility] [address] [place] [address] Ivana Chowdhury MD Form 09/26/2024 11:55 AM COSMETOLOGY INSTRUCTOR Ancillary Procedure [facility] [address] [address] 09/26/2024 11:00 AM COSMETOLOGY INSTRUCTOR Office Visit [facility] [address] [place] [address] Peace Ruth MD Follow Up 09/25/2024 9:45 AM COSMETOLOGY INSTRUCTOR Office Visit [facility] [address] [place] [address] Consuelo Quevedo MD Medication Management 09/25/2024 Travel 09/19/2024 10:30 AM COSMETOLOGY INSTRUCTOR Telemedicine [facility] [address] [place] [address] Celia Dos Santos PsyD, TAMMIE Individual Therapy; Telehealth 09/05/2024 9:30 AM COSMETOLOGY INSTRUCTOR Telemedicine [facility] [address] [place] [address] Celia Dos Santos PsyD, LP Individual Therapy; Telehealth 08/29/2024 10:30 AM COSMETOLOGY INSTRUCTOR Telemedicine [facility] [address] [place] [address] Celia Dos Santos PsyD, LP Individual Therapy; Telehealth 08/23/2024 10:30 AM COSMETOLOGY INSTRUCTOR Ancillary Procedure [facility] [address] [place] [address] 08/23/2024 Travel 08/21/2024 11:15 AM COSMETOLOGY INSTRUCTOR Office Visit [facility] [address] [place] [address] Consuelo Quevedo MD Mental Health Intake (Establish care, medication consult) 08/21/2024 9:50 AM COSMETOLOGY INSTRUCTOR Office Visit [facility] [address] [place] [address] Ivana Chowdhury MD Wound Check (Diabetic wound check on toe) 08/20/2024 Travel 08/13/2024 2:45 PM CDT Ancillary Procedure [facility] [address] [place] [address] 08/13/2024 2:15 PM CDT Office Visit [facility] [address] [place] [address] Ivana Chowdhury MD Toe Pain/problem (Possible infection in toe. Pulled a callus off her left toe a few days ago. 1 day for foot and calve pain); Immunization/Injec tion 08/13/2024 9:30 AM CDT Telemedicine [facility] [address] [place], [place] [address] [address] Celia Dos Santos PsyD, TAMMIE Individual Therapy; Telehealth 08/13/2024 Refill [facility] [address] [place] [address] Radha Bird DO Refill Request (Simvastatin) 08/13/2024 Travel 07/31/2024 9:30 AM CDT Telemedicine [facility] [address] [place], [place] [address] [address] Celia Dos Santos PsyD, TAMMIE Individual Therapy; Telehealth 07/25/[address] [address] Consuelo Quevedo MD Questions (requesting approval to follow up ) 07/23/2024 3:00 PM CDT Office Visit [facility] [address] [place] [address] Katherin Stallworth MD Consult (gallstones) 07/23/2024 Travel 07/23/2024 Telephone [facility] [address] [place] [address] Celia Dos Santos PsyD, TAMMIE Follow Up [...] Diabetes Daughter Alcoholism Father Heart Disease Father NE 60's Hypertension Father Diabetes Maternal Aunt 1 [...] drink = 0.6 oz pur e alcohol) [facility] Utilities Answer Date Recorded Do you have [...] Sex Assigned at Female 12/01/2020 8:02 PM COSMETOLOGY INSTRUCTOR Legal Sex Female 6:50 AM COSMETOLOGY INSTRUCTOR Gender Identity Female 12/01/2020 8:02 PM COSMETOLOGY INSTRUCTOR Sexual Orientation Straight 12/01/2020 8: 02 PM COSMETOLOGY INSTRUCTOR Occupation Industry Job Start Date Job End [...] Comments Blood Pressure 112/70 09/26/2024 11:02 AM COSMETOLOGY INSTRUCTOR Pulse 76 09/26/2024 11:02 AM COSMETOLOGY INSTRUCTOR Temperature 36.5 C (97.7 F) 10/04/2023 7:46 AM COSMETOLOGY INSTRUCTOR Respiratory Rate 18 10/04/2023 9:00 AM COSMETOLOGY INSTRUCTOR Oxygen Saturation 100% 09/26/2024 11:02 AM COSMETOLOGY INSTRUCTOR Inhaled Oxygen Concentration - - Weight 105.7 kg (233 lb) 09/26/2024 11:02 AM COSMETOLOGY INSTRUCTOR Height 165.1 cm (5' 5) 09/26/2024 11:02 AM COSMETOLOGY INSTRUCTOR Body Mass Index 38.77 09/26/2024 11:02 AM COSMETOLOGY INSTRUCTOR Plan of Treatment Upcoming Encounters Date Type Department Care Team (Late st Contact Info) Description 10/28/2024 1:45 PM COSMETOLOGY INSTRUCTOR Office Visit [facility] [address] [facility] [address] [place] [address] Eunice, Mendoza, DO [address] [place] [address] 10/31/2024 10:30 AM COSMETOLOGY INSTRUCTOR Telemedicine [facility] [address] [place] [address] [place] [address] [place] [address] 11/14/2024 10:30 AM COSMETOLOGY INSTRUCTOR Telemedicine [facility] [address] [place] [address] [place] [address] [place] [address] 11/28/2024 10:30 AM COSMETOLOGY INSTRUCTOR Telemedicine [facility] [address] [place] [address] [place] [address] [place] [address] 12/25/2024 10:45 AM CDT Office Visit [facility] [address] [place] [address] Consuelo Quevedo MD [address] [place] [address] 01/21/2025 10:15 AM CDT Orders Only [facility] [address] [place] [address] Lab, [place] 01/28/2025 11:00 AM CDT Office Visit [facility] [address] [place] [address] [place] [address] [place] [address] [place] [address] Health Maintenance Due Date Last Done Comments Hepatitis B series for Diabe ac (3 of 3 - 19+ 3-dose series) 05/01/2022 01/07/2022, 11/01/2021 COVID-19 vaccine series ( season) 2024 08/13/2024, 09/11/2023, 07/11/2022, Additional history exists Tetanus booster 03/06/2025 03/06/2015, 10/2008 (Completed outside of [facility]), 04/07/2004 Mammogram for age 45-75 03/18/2025 03/18/20, [...] COMP METABOLIC PANEL Routine 09/26/2024 11:59 AM COSMETOLOGY INSTRUCTOR Rheumatoid arthritis, seronegative, multiple sites (HC) XR SPINE LUMBAR 2 VIEWS Routine 09/26/2024 11:57 AM COSMETOLOGY INSTRUCTOR Chronic midline low back pain without sciatica SCAN-OPERATIVE/PROCE DURE REPORT 09/03/2024 11:00 AM COSMETOLOGY INSTRUCTOR US VENOUS LOWER EXTREMITY LEFT Routine 08/23/2024 11:01 AM COSMETOLOGY INSTRUCTOR Localized swelling of left lower extremity PERIPHERAL BLD MORPHOLOGY Routine 08/21/2024 12:22 PM COSMETOLOGY INSTRUCTOR Thrombocytopenia (HC) CBC WITH AUTO DIFFERENTIAL STAT 08/21/2024 12:22 PM COSMETOLOGY INSTRUCTOR Thrombocytopenia (HC) RETICULOCYTES STAT 08/21/2024 12:22 PM COSMETOLOGY INSTRUCTOR Thrombocytopenia (HC) CBC WITH AUTO DIFFERENTIAL STAT 08/21/2024 12:22 PM COSMETOLOGY INSTRUCTOR Thrombocytopenia (HC) XR TOES 3 VIEWS LEFT [...] REFLEX MEASURED LDL Routine 09/23/2022 9:32 AM COSMETOLOGY INSTRUCTOR Diabetes mellitus without complication (HC) from Last 3 Months or Most Recently Relevant to Health Maintenance Results * (ABNORMAL) COMP METABOLIC PANEL (09/26/2024 11:59 AM COSMETOLOGY INSTRUCTOR) GLUCOSE 109(H) 65 - 99 mg/dL [facility] [...] BLOOD SPECIMEN / Unknown 09/26/2024 11:59 AM COSMETOLOGY INSTRUCTOR 09/26/2024 11:59 AM COSMETOLOGY INSTRUCTOR Peace Ruth MD CHEMISTRY Fin al Result Performing Organization Address City/State/[facility] Co de Phone Number [facility] [address] [place] [address], [facility] [address] [place] [address] * XR SPINE LUMBAR 2 VIEWS (09/26/2024 11:57 AM COSMETOLOGY INSTRUCTOR) Anatomical Region Laterality Modality LUMBAR SPINE Digital Radiogra phy 09/27/2024 9:38 AM COSMETOLOGY INSTRUCTOR Impressions 09/27/2024 9:38 AM COSMETOLOGY INSTRUCTOR 1. Normal variant lumbosacral segmentation can be a pain generator. 2. Mild lower lumbar disc and facet degeneration. Dictated by Nidia Leary MD @ 09/27/2024 9:38:50 AM (Electronically Signed) Narrative 09/27/2024 9:38 AM COSMETOLOGY INSTRUCTOR For Patients: As a result of the [...] AP and lateral. FINDINGS: There are 4 [id number] lumbar type vertebral bodies with sacralization of [...] AP and lateral. FINDINGS: There are 4 [id number] lumbar type vertebral bodies withsacralization of the [...] (Electronically Signed) Peace Ruth MD GENERAL IMAGING [facility] al Result * SCAN-OPERATIVE/PROCEDURE REPORT (09/03/2024 11:00 AM COSMETOLOGY INSTRUCTOR) Narrative Procedure Note Jefferson Sánchez MD - 09/03/2024 9:47 AM CST [facility] [address] [facility], [address], [place] [address] Patient Name: Pia Stevens Gender: Female Exam Date: 09/03/2024 Visit Number: [id number] Age: 54 Years Date of : 1970 Attending MD: Jefferson Sánchez MD Medical Record#: [id number] ----- Procedure: Upper GI Endoscopy Indications: Iron [...] signed by: Christopher Marion MD Interpreted at [facility], [address] [facility] [address],[place] [address] Orders Office Procedures: Service Comments Timeframe Assessment Small Bowel PillCam First Available D50.9 Additional Comments: No findings to explain iron deficiency anemia. As we discussed, we willrequest a pillcam to evaluate for any bleeding source in the smallintestine. If this comes back normal, evaluation by hematology will be reasonable. _Electronically signed by: Jefferson Sánchez MD 09/03/2024 cc: Ivana Chowdhury MD us Jefferson Sánchez MD OTHER Final Resul t * US VENOUS LOWER EXTREMITY LEFT (08/23/2024 11:01 AM COSMETOLOGY INSTRUCTOR) Anatomical Region Laterality Modality LEGS, LEG L, Abdomen Ultrasound 08/23/2024 8:48 PM COSMETOLOGY INSTRUCTOR Impressions 08/23/2024 8:48 PM COSMETOLOGY INSTRUCTOR No convincing radiographic evidence of deep vein thrombosis within the visualized left lower extremity. Dictated by Jose Vásquez MD @ 08/23/2024 8:48:50 PM (Electronically Signed) Narrative 08/23/2024 8:48 PM COSMETOLOGY INSTRUCTOR For Patients: As a result of the [...] 8:48:50 PM (Electronically Signed) Ivana Chowdhury MD [facility] nal Result * (ABNORMAL) CBC WITH AUTO DIFFERENTIAL (08/21/2024 12:22 PM COSMETOLOGY INSTRUCTOR) Pathologist [facility] WHITE BLOOD COUNT 7.6 4.5 - 11.0 thou/cu mm 08/21/2024 3:33 PM COSMETOLOGY INSTRUCTOR [employer] [facility] [facility] RED BLOOD COUNT 4.49 4.00 - 5.20 mil/cu mm 08/21/2024 3:33 PM COSMETOLOGY INSTRUCTOR [facility] HEMOGLOBIN 11.7(L) 12.0 - 16.0 g/dL 08/21/2024 3:33 PM [facility] HEMATOCRIT 38.1 33.0 - 51.0 % 08/21/2024 3:33 PM COSMETOLOGY INSTRUCTOR [facility] MCV 85 80 - 100 fL 08/21/2024 3:33 PM [facility] MCH 26.1 26.0 - 34.0 pg 08/21/2024 3:33 PM [facility] MCHC 30.7(L) 32.0 - 36.0 g/dL 08/21/2024 3:33 PM [facility] RDW 19.7(H) 11.5 - 15.5 % 08/21/2024 3:33 PM [facility] PLATELET COUNT 211 140 - 440 thou/cu mm 08/21/2024 3:33 PM [facility] MPV 10.4 6.5 - 11.0 fL 08/21/2024 3:33 PM [facility] NRBC 0.0 % 08/21/2024 3:33 PM [facility] ABS NRBC 0.0 thou /cu mm 08/21/2024 3:33 PM [facility] % NEUT 66.7 % 08/21/2024 3:33 PM [facility] % LYMPH 22.6 % 08/21/2024 3:33 PM [facility] % MONO 7.3 % 08/21/2024 3:33 PM [facility] % EOS 2.2 % 08/21/2024 3:33 PM [facility] % BASO 0.8 % 08/21/2024 3:33 PM [facility] % IMMATURE GRAN (METAS,MYELOS,AR OS) 0.4 % 08/21/2024 3:33 PM [facility] ABSOLUTE NEUTROPHILS 5.0 1.7 - 7.0 thou/cu mm 08/21/2024 3:33 PM [facility] ABSOLUTE LYMPHOCYTES 1.7 0.9 - 2.9 thou/cu mm 08/21/2024 3:33 PM [facility] ABSOLUTE MONOCYTES 0.6 <0.9 thou/cu mm 08/21/2024 3:33 PM [facility] ABSOLUTE EOSINOPHILS 0.2 <0.5 thou/cu mm 08/21/2024 3:33 PM [facility] ABSOLUTE BASOPHILS 0.1 <0.3 thou/cu mm 08/21/2024 3:33 PM [facility] ABSOLUTE IMMATURE GRANULOCYTES(MET ,MYELOS,PROS) 0.0 <0.3 thou/cu mm 08/21/2024 3:33 PM COSMETOLOGY INSTRUCTOR [facility] Blood BLOOD SPECIMEN / Unknown [facility] / Unknown 08/21/2024 12:22 PM COSMETOLOGY INSTRUCTOR 08/21/2024 12:22 PM COSMETOLOGY INSTRUCTOR Ivana Chowdhury MD HEMATOLOGY Fi nal Result [facility] [address] [place] [address], * PERIPHERAL BLD MORPHOLOGY (08/21/2024 12:22 PM COSMETOLOGY INSTRUCTOR) Case Report Special Hematology Report Case: [id number] Authorizing Provider: Ivana Chowdhury Collected: 08/21/2024 [facility] MD Marianne Ordering Location: [facility] Received: 08/21/[address] [place] [address] Pathologist: Heath Horton MD Specimen: Blood 08/25/2024 11:06 AM COSMETOLOGY INSTRUCTOR [facility] [employer] [facility] Final Diagnosis PERIPHERAL BLOOD: 1. Mild normocytic anemia 2. See comment 08/25/2024 11:06 AM COSMETOLOGY INSTRUCTOR [facility] [employer] [facility] Comment At the time of this [...] [place], MS (ASCP). 08/25/2024 11:06 AM COSMETOLOGY INSTRUCTOR [facility] Clinical Information The patient is a 54-year-old female. 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 She is currently receiving prednisone. 08/25/2024 11:06 AM [facility] CBC and Differential HEMATOLOGY PARAMETERS Tested at: [facility] RESULTS EXPECTED VALUES WBC: 7.6 4.5-96v7137/cumm RBC: 4.49 4.00-5.20 mil/cumm HGB: 11.7 12-16 gm/dl DECREASED HCT: 38.1 33-51% MCV: 85.0 80-100 fl NORMOCYTIC MCH: 26.1 26-34 pg MCHC: 30.7 32-36 gm/dl HYPOCHROMIC RDW: 19.7 11.5-15.5% ELEVATED PLT: 211 [id number]/uL MPV: 10.4 6.5-11 fl Retic: 0.9 0.5-1.5% Differential Tested at: [facility] Absolute (%) Expected (%) (x10*9/L) (x10*9/L) Neutrophils: 5.0 (65.8) 1.7-7.0 (42-72%) Lymphocytes: 1.7 (22.4) 0.9-2.9 (20-44%) Monocytes: 0.6 (7.9) <0.9 (0-11%) Eosinophils: 0.2 (2.6) <0.5 (0-2%) Basophils: 0.1 (1.3) <0.3 (<3.0%) 08/25/2024 11:06 AM [facility] Microscopic Description The final diagnosis is based on microscopic examination of an appropriately stained blood smear. 08/25/2024 11:06 AM [facility] Additional Information Interpreted at [facility] - [address] [place] [address] S[address] [facility] [address], [place] [address] 08/25/2024 11:06 AM [facility] Blood BLOOD SPECIMEN / Unknown [facility] / Unknown 08/21/2024 12:22 PM COSMETOLOGY INSTRUCTOR 08/21/2024 12:22 PM COSMETOLOGY INSTRUCTOR Comment:CURRENT MEDICATIONSC urrent Outpatient Medications: adalimumab (HUMIRA [...] 60 tablet, Rfl: 11 Free[employer] Bambi 3 [place] for continuous blood glucose monitor (CGM), To be used to read blood sugars follow computer networker directions., Disp: 1 Each, Rfl: 0 hydroxychloroquine (PLAQUENIL) 200 mg tablet, Take 200 mg by mouth 2 times daily., Disp: , Rfl: Insulin [place], Disposable, (Novofine 32) 32 gauge x 1/4, [...] other 4 days, Disp: , Rfl: 3 satellite project site monitor (FreeStyle Bambi 3 [place]) for continuous blood glucose monitor (CGM), To be used to read blood sugars follow computer networker directions., Disp: 1 Each, Rfl: 0 semaglutide (OZEMPIC) 2 mg/dose (8 mg/3 mL) pen, Inject 0.75 mL (2 mg) subcutaneous once weekly., Disp: 3 mL, Rfl: 4 sensor (FreeStyle Bambi 3 Sensor) for continuous blood glucose monitor (CGM), To be used to read blood sugars, follow computer networker directions., Disp: 7 Each, Rfl: 3 simvastatin (ZOCOR) 10 mg tablet, TAKE 1 TABLET BY MOUTH ONCE DAILY WITH EVENING MEAL, Disp: 100 Tablet, Rfl: 2 venlafaxine (EFFEXOR XR) 150 mg Extended-Release capsule, TAKE 2 CAPSULES BY MOUTH ONCE DAILY WITH EVENING MEAL, Disp: 180 Capsule, Rfl: 3 Ivana Chowdhury MD HEMATOLOGY Fi nal Result Performing Organization Address [facility] Co de Phone Number [facility] [address] [address], [place] * RETICULOCYTES (08/21/2024 12:22 PM COSMETOLOGY INSTRUCTOR) [facility] RETIC% 0.9 0.5 - 1.5 % 08/21/2024 3:33 PM COSMETOLOGY INSTRUCTOR [facility] RETIC (ABSOLUTE) 0.04 0.03 - 0.08 mil/cu mm 08/21/2024 3:33 PM COSMETOLOGY INSTRUCTOR [facility] Blood BLOOD SPECIMEN / Unknown [facility] / Unknown 08/21/2024 12:22 PM COSMETOLOGY INSTRUCTOR 08/21/2024 12:22 PM COSMETOLOGY INSTRUCTOR Ivana Chowdhury MD HEMATOLOGY Fi nal Result Performing Organization Address [facility] de Phone Number [facility] [address] [place] [address], [place] * XR TOES 3 VIEWS LEFT [...] MONITORING (POCT) (08/13/2024 2:41 PM CDT) Pathologist [facility] POC HEMOGLOBIN A1C 6.6(H) <6.0 % OF TOTAL HGB [facility] Comment: Any point of care results exhibiting inconsistency with the patient's clinical status should be repeated using a different testing method. Blood BLOOD SPECIMEN / Unknown 08/13/2024 2:41 PM CDT 08/13/2024 2:41 PM CDT Ivana Chowdhury MD CHEMISTRY Fi nal Result [facility] [address] [place] [address], [facility] [address] [place] [address] * (ABNORMAL) CBC AND DIFFERENTIAL (08/13/2024 2:40 PM CDT) Pathologist [facility] WHITE BLOOD CELL COUNT 8.9 3.8 - [...] MD HEMATOLOGY Fi nal Result [facility] [address] [facility] [place] [address], [place] [phone] [facility] [address] [place] [address] * ANTI-MITOCHONDRIAL ZAKI (07/23/2024 3:40 PM CDT) Pathologist [facility] MITOCHONDRIAL AB SCREEN NEGATIVE NEGATIVE [facility] Pritesh Blood BLOOD SPECIMEN / Unknown 07/23/2024 3:40 PM CDT 07/23/2024 3:41 PM CDT Katherin Stallworth MD SEND OUTS Final Re sult Performing Organization Address [facility] Co de Phone Number [facility] [address] [facility] [place] [address], [place] [phone] [facility] [address] [facility] [place] [address] * GAMMA GT (07/23/2024 3:40 PM CDT) Pathologist [facility] GGT 18 3 - 70 U/L [facility] Blood BLOOD SPECIMEN / Unknown 07/23/2024 3:40 PM CDT 07/23/2024 3:41 PM CDT Katherin Stallworth MD CHEMISTRY Final Re sult Performing Organization Address [facility]/ZIP Co de Phone Number [facility] [address] [facility] [place] [address], [place] [phone] [facility] [address] [facility] [place] [address] * HEPATIC FUNCTION PANEL (07/23/2024 3:40 PM CDT) Pathologist [facility] PROTEIN, TOTAL 7.0 6.1 - 8.1 g/dL [...] CHEMISTRY Final Re sult Performing Organization Address City/State/[facility] Co de Phone Number [facility] [address] [place] [address], [facility] [address] [place] [address] * SCAN-COLONOSCOPY (07/09/2024 11:00 AM CDT) Narrative Procedure Note SeamusDameon Ballard MD - 07/09/2024 10:05 AM CDT [facility] [address] [place] [address], [address], [place] [id number] Patient Name: Pia Stevens Gender: Female Exam Date: 07/09/2024 Visit Number: [id number] Age: 54 Years Date of : 1970 Attending MD: Dameon Baldwin MD Medical Record#: [id number] Procedure: Colonoscopy Indications: Iron deficiency anemia Referring [...] signed by: Danna Padilla MD Interpreted at [facility], [address] [place] [phone] Orders Instruction(s)/Education: Instruction/Education Timeframe Assessment Colon Cancer [...] care provider. XR MAMMO CARI BILAT SCREEN [[id number]] CLINICAL HISTORY: This is an asymptomatic 53 y.o. patient. INDICATION FOR EXAM: Mammogram Screening. TECHNIQUE: CC & MLO views were obtained. This study was evaluated with the assistance of Computer-Aided Detection. Breast Tomosynthesis was used in interpretation. COMPARISON FILM: Yes 09/02/20 [facility] 06/01/18 [facility] FINDINGS: The breasts are almost entirely fatty. There are no dominant masses, suspicious micro calcifications or areas of architectural distortion. Radha Bird DO MAMMO Final Resul t * LC HCV ANTIBODY RFX TO QUANT PCR (03/10/2023 11:01 AM CDT) HCV Ab Non Reactive Non Reactive 03/15/2023 10:06 PM CDT [facility] Blood BLOOD SPECIMEN / Unknown Venipuncture / Unknown 03/10/2023 11:01 AM CDT 03/10/2023 11:01 AM CDT Narrative [facility] ([facility]) - 03/15/2023 10:06 PM CDT Performed at: [address] [place] [address] [id number] [employer] Operator: Ty Wu MD, Phone: [phone] Radha Bird DO LABORATORY Final Resul t Performing Organization Address City/[facility]/ZIP Co de Phone Number [facility] ([facility]) [address] [place] [address], * LC HIV-1/O/2, 4TH GENERATION (03/10/2023 11:01 AM CDT) HIV Scr 4th Gen Non Reactive Non Reactive 03/15/2023 11:09 AM CDT [facility] ([facility]) Comment: HIV Negative HIV-1/HIV-2 antibodies and HIV-1 p24 antigen were NOT detected. There is no laboratory evidence of HIV infection. Blood BLOOD SPECIMEN / Unknown Venipuncture / Unknown 03/10/2023 11:01 AM CDT 03/10/2023 11:01 AM CDT Narrative [facility] ([facility]) - 03/15/2023 11:09 AM CDT Performed at: [address] [place] [id number] [employer] Operator: Ty Wu MD, Phone: [phone] Radha Bird DO LABORATORY Final Resul t Performing Organization Address City/[facility] Co de Phone Number [facility] ([facility]) [address] [place] [address], * LIPID PANEL W REFLEX MEASURED LDL (09/23/2022 9:32 AM COSMETOLOGY INSTRUCTOR) CHOLESTEROL,TOTAL 168 100 - 199 mg/dL 09/25/2022 11:23 AM COSMETOLOGY INSTRUCTOR [facility] TRIGLYCERIDES 81 <150 mg/dL 09/25/2022 11:23 AM COSMETOLOGY INSTRUCTOR [facility] HDL CHOLESTEROL 66 >40 mg/dL 11:23 AM COSMETOLOGY INSTRUCTOR [facility] NON-HDL CHOLESTEROL 102 <145 mg/dl 09/25/2022 11:23 AM COSMETOLOGY INSTRUCTOR [facility] CHOL/HDL RATIO 2.55 <4.50 09/25/2022 11:23 AM COSMETOLOGY INSTRUCTOR [facility] TRAL LABORATORY LDL CHOLESTEROL 86 <=130 mg/dL 09/25/2022 11:23 AM COSMETOLOGY INSTRUCTOR [facility] TRAL LABORATORY VLDL CHOLESTEROL 16 <=30 mg/dL 09/25/2022 11:23 AM COSMETOLOGY INSTRUCTOR [employer] TRAL LABORATORY PROVIDER ORDERED STATUS RANDOM 09/25/2022 11:23 AM COSMETOLOGY INSTRUCTOR [employer] TRAL LABORATORY Blood BLOOD SPECIMEN / Unknown Venipuncture / Unknown 09/23/2022 9:32 AM COSMETOLOGY INSTRUCTOR 09/23/2022 9:33 AM COSMETOLOGY INSTRUCTOR us Radha Bird DO CHEMISTRY Final Resul t [facility] [address] [place] [address], from Last 3 Months or Most Recently Relevant to Health Maintenance Insurance MEDICARE PART B ONLY [facility] ATTN: [place] [address] [facility] MEDICARE PART A HB ONLY MEDICARE PART [...] 1:17 AM 05/23/2007 8:02 PM Care Teams Service Promoter Salesperson Relationship Specialty Start Date End Date Ivana Chowdhury MD [address] [place] [address] PCP - General Family Practice 08/13/24 Aime Gordon General Surgery Surgery - General 12/03/12 Chele Del Toro MD Rheumatology Rheumatology 02/11/13 [place] [id number] [place] [address] Mental Health Provider Psychology 03/05/20
[2024-10-20 15:38] LABS: Albumin* 3.6 g/dL (3.3-5.0); Chloride* 104 mmol/L (96-114)
[2024-10-20 15:39] LABS: Potassium* 3.7 mmol/L (3.6-5.1); Sodium* 136 mmol/L (135-149)
[2024-10-20 15:41] LABS: Alanine Aminotransferase* 19 U/L (4-35); Alkaline Phosphatase* 117 U/L (40-150); Anion Gap 2 mEq/L (7-15); Aspartate Amino Transferase* 24 U/L (12-35); Bilirubin Total* 0.5 mg/dL (0.1-1.5); Blood Urea Nitrogen* 15 mg/dL (7-30); Carbon Dioxide* 30 mmol/L (20-32); Creatinine* 0.9 mg/dL (0.5-1.5); Estimated Glomerular Filt Rate 76 ml/min; Glucose* 82 mg/dL (60-115); Total Protein* 6.7 g/dL (6.0-8.3)
[2024-10-20 15:42] LABS: Calcium* 8.7 mg/dL (8.4-10.6)
--- NOTE | 2024-10-20 16:20 | CRLHL7_ITS ---
For Patients: As a result of the Century Cures Act, medical imaging exams and procedure reports are released immediately into your electronic medical record. You may view this report before your referring provider. If you have questions, please contact your health care provider. INDICATION: Emesis. Back pain. TECHNIQUE: CT abdomen and pelvis without contrast. Coronal and sagittal reformats were obtained. COMPARISON: None. FINDINGS: Lower chest: No suspicious lung lesions. Large calcification along the left lower lung pleura. Liver: Within normal limits. Spleen: Within normal limits. Pancreas: Within normal limits. Gallbladder and bile ducts: Within normal limits. Kidneys: No hydronephrosis. No obstructing or nonobstructing renal calculi. Adrenal glands: Within normal limits. Bowel: Within normal limits. Vascular: Within normal limits. Lymph nodes: Within normal limits. Peritoneum: Within normal limits. Pelvis: Within normal limits. Bones: No acute osseous abnormalities. Scattered lumbar spondylosis. IMPRESSION: 1. No acute intra-abdominal pathology. In particular, no evidence of obstructing or nonobstructing renal calculi. No hydronephrosis. Please note that all CT scans at this facility use dose modulation, iterative reconstruction, and/or weight-based dosing when appropriate to reduce radiation dose to as low as reasonably achievable. Dictated by David Stock MD @ 10/20/2024 5:05:56 PM (Electronically Signed)
[2024-10-20] MEDS: HYDROCODONE-ACETAMIN 5-325 MG 1 TAB PO ×2 (16:26→17:29)
[2024-10-20 17:40] LABS: Lactate* 1.3 mmol/L (0.5-1.9)
[2024-10-20 19:37] VITALS: TEMP 37.2
[2024-10-20 20:49] VITALS: O2SAT 96
[2024-10-20 21:00] LABS: Appearance Urine Clear (Clear); Bilirubin Urine Negative (Negative); Blood Urine Negative (Negative); Color Urine Yellow (Yellow); Glucose Urine Negative (Negative); Ketones Urine Negative (Negative); Leukocyte Esterase Urine Negative (Negative); Nitrite Urine Negative (Negative); Protein Urine Negative (Negative); Urobilinogen Urine 0.2 (0.2-1.0)
[2024-10-20 21:06] LABS: RBC Urine 0-2 (0-2); WBC Urine 0-2 (0-5)
[2024-10-20 21:21] VITALS: BP 110/74; PULSE 89; RESP 18; TEMP 37.2; O2SAT 96
[2024-10-20 21:22] VITALS: BP 110/74; PULSE 89; RESP 18; TEMP 37.2
== END 2024-10-20 21:22 | disposition home or self-care (01) ==
PROVIDERS: Emergency Provider Emergency Medicine; PCP Family Medicine
DX: R11.2 Nausea with vomiting, unspecified (principal); D72.829 Elevated white blood cell count, unspecified; M79.10 Myalgia, unspecified site
CPT/HCPCS: 36415; 74176; 80053; 81001; 82803; 83605; 83690; 85025; 87040; 87631; 94761; 96374; 96375; 99284; A9270; J1885; J2405; J7030